=== PATIENT | male | born 1945 | race Hispanic/Latino ===

== ENCOUNTER 2018-12-13 21:56 | Inpatient (IN) ==
[2018-12-13] MEDS ORDERED: LOPRESSOR IV ONE (22:19)
[2018-12-13 22:46] LABS: BILIRUBIN URINE NEGATIVE (NEGATIVE); BLOOD URINE 1+ (NEGATIVE); CLARITY SL. CLOUDY (CLEAR); COLOR YELLOW; GLUCOSE URINE NEGATIVE (NEGATIVE); KETONE URINE NEGATIVE (NEGATIVE); LEUKOCYTES URINE 2+ (NEGATIVE); NITRITE URINE NEGATIVE (NEGATIVE); PH URINE 6.5; PROTEIN URINE 2+(100 mg/dL) mg/dL (NEGATIVE); SP GRAVITY URINE 1.015; UROBILINOGEN URINE NORMAL
[2018-12-13 23:00] LABS: URINE BACTERIA 4+ /HFP
[2018-12-13 23:01] LABS: URINE WBC TNTC /HPF (<10)
[2018-12-13 23:02] LABS: URINE CAST NONE SEEN /LPF; URINE CRYSTAL NONE SEEN /HPF; URINE EPITHELIAL CELLS <10 /HPF (<10); URINE SOURCE CLEAN CATCH; URINE YEAST NONE SEEN /HPF
[2018-12-13] MEDS ORDERED: ATIVAN IV ONE ×2 (23:25→23:29)
[2018-12-13] MEDS ORDERED: CARDIZEM PO ONE (23:27)
[2018-12-13] MEDS ORDERED: CATAPRES PO ONE (23:28)
[2018-12-13 23:35] LABS: BASO# 0.04 X1000 (0.0-0.2); BASO% 0.4 % (0.0-0.8); EOS# 0.12 X1000 (0.0-0.7); EOS% 1.2 % (0.0-10.0); HEMATOCRIT 40.2 % (42.0-52.0); HEMOGLOBIN 13.9 g/dL (14.0-18.0); IMM GRAN# 0.03 X1000 (0.0-0.04); IMM GRAN% 0.3 % (0.0-0.5); LYMPH# 1.47 X1000 (1.2-3.4); LYMPH% 14.3 % (20.5-51.1); MCH 30.4 PG (27-31); MCHC 34.6 g/dL (33-37); MONO# 0.46 X1000 (0.11-0.59); MONO% 4.5 % (1.7-9.3); MPV 11.8 FL (7.4-10.4); NEUT# 8.18 X1000 (1.4-6.5); NEUT% 79.3 % (42.2-75.2); PLT 159 X1000 (130-400); RBC 4.57 XMIL (4.7-6.1); RDW 13.1 % (11.5-14.5)
[2018-12-13 23:52] LABS: INR 0.98; PROTIME 13.5 Seconds (11.0-16.0)
[2018-12-14] LABS: AGAP 15; BUN 12 mg/dL (8-22); CHLORIDE 103 mmol/L (98-107); COSMO 283; CREATININE 0.8 mg/dL (0.7-1.2); GLUCOSE 133 mg/dL (70-104); POTASSIUM 3.8 mmol/L (3.5-5.1); SODIUM 141 mmol/L (136-145); TCO2 23 mmol/L (25-35)
[2018-12-14 00:01] LABS: CALCIUM 9.2 mg/dL (8.8-10.2); ESTIMATED GFR > 60; MAGNESIUM 1.9 mg/dL (1.5-2.7)
--- NOTE | 2018-12-14 00:51 | EKG Report ---
Test Performed on : 12/14/2018 00:43:18 AM Test Reason : SEIZURE Blood Pressure : / mmHG Vent. Rate : 097 BPM Atrial Rate : 097 BPM P-R Int : 162 ms QRS Dur : 104 ms QT Int : 400 ms P-R-T Axes : 053 052 087 degrees QTc Int : 508 ms Normal sinus rhythm. Incomplete right bundle branch block Nonspecific ST and T wave abnormality Abnormal ECG When compared with ECG of 12-MAY-2018 20:27, Incomplete right bundle branch block is now present Nonspecific T wave abnormality, worse in Anterolateral leads Unconfirmed Result
[2018-12-14] MEDS ORDERED: CATAPRES PO ONE (01:31)
[2018-12-14] MEDS ORDERED: ZOFRAN IV PRN (01:35)
[2018-12-14] MEDS ORDERED: TYLENOL PO PRN (01:35)
[2018-12-14] MEDS ORDERED: TORADOL IV PRN (01:35)
[2018-12-14] MEDS ORDERED: NS 1,000 ML IV ONE (01:35)
[2018-12-14] MEDS ORDERED: CATAPRES PO PRN (01:40)
[2018-12-14] MEDS ORDERED: ATIVAN IV PRN (01:42)
[2018-12-14] MEDS ORDERED: ROCEPHIN 1 GM in NS 50 ML IV ONE (01:43)
--- NOTE | 2018-12-14 01:43 | PROVIDER DOCUMENTATION ---
This chart was entered by Isabella Pagan Scribe, acting as scribe for Braulio Lieberman MD. HPI-Neurological Disorder - General Chief Complaint: Seizure Stated Complaint: AMS Time Seen by Provider: 12/13/18 22:11 Source: family, EMS Unable to obtain history due to:: other (pt and family with pt are poor histor ians, difficult to obtain detailed information about incident and pt hx.) Allergies/Adverse Reactions: Patient Allergies Allergy/AdvReac Type Severity Reaction Status Date / Time No Known Allergies Allergy Verified 05/12/18 20:28 Home Medications: Home Medication List Medication Instructions Recorded Confirmed Last Taken Type NK [No Home Medications] 05/12/18 05/12/18 Unknown History - History of Present Illness-Neuro Nature of Presenting Problem: pt is a 73 yr old male presenting via EMS post seizure. per family pt had seizure this afternoon while urinating and again this evening just after eating supper. pt was difficult to wake after 2nd seizure, family reports as generalized shaking all over. pt hx of CVA with craniotomy and clot removal 6 months ago, no hx of seizure disorder. pt incontinent with strong, foul smelling urine. Nephew now at bedside reports pt was at a SNF in [place] after being discharged from [facility] until his brother checked him out and took him home to be with family in [place]. pt has since run out of his medications which included cardizem 25 bid . pt is cared for by 82yr old brother and his . - Seizure First time to have a seizure?: Yes Witnessed seizure?: Yes How many seizure episodes?: 2 Episode details: reports: unknown duration, details of seizure cannot be obtained, details of seizure cannot be verified Episode Frequency: rare episodes Status Epilepticus: No Preceding symptoms/context:: active Character of Seizure: reports: generalized shaking all over, incontinent of urine Review of Systems - Adult - REVIEW OF SYSTEMS - ADULT ROS:: limited per condition (pt and family with pt are very poor historians, difficult to obtain information) Constitutional: reports: no symptoms reported. denies: chills, fever Eyes: reports: no symptoms reported Ears, Nose, Mouth & Throat: reports: no symptoms reported Cardiovascular: reports: no symptoms reported Respiratory: reports: no symptoms reported Gastrointestinal: reports: no symptoms reported Genitourinary: reports: incontinence, other (strong, foul smelling urine) Musculoskeletal: reports: no symptoms reported Integumentary: reports: no symptoms reported Neurological: reports: seizure Psychiatric: reports: no symptoms reported Endocrine: reports: no symptoms reported Hematologic/Lymphatic: reports: no symptoms reported Allergic/Immunologic: reports: no symptoms reported All Other Systems: Reviewed and Negative Past History - Adult - PAST MEDICAL HISTORY-ADULT Review of Records: reports: Old Records Reviewed, Nursing Assessment Review, Medications Reviewed, Social history reviewed & non-contributory. Major Childhood Illnesses: reports: denies history Cardiovascular: reports: denies history Respiratory: reports: denies history Gastrointestinal: reports: denies history Obstetrical/Gynecological: reports: denies history Genitourinary: reports: denies history Musculoskeletal: reports: denies history Neurological: reports: CVA Endocrine/Immune: reports: denies history Other Conditions: reports: denies history - PRIOR SURGERIES/PROCEDURES Surgical/Procedure History: reports: none - IMMUNIZATION STATUS Childhood Immunizations: See Nurse Assessment Flu Vaccine: See Nurse Assessment - FAMILY HISTORY Family History: reviewed, not pertinent - SOCIAL HISTORY Smoking: non-smoker Living Situation: family Physical Exam- Neurological - Physical Exam-Neuro Initial Vital Signs Reviewed: Yes General Appearance: no apparent distress, thin, slow to respond (slow to respond and slow to follow commands initally but back to his baseline per family within 20 min of presentation to ER.) HENMT: normocephalic/atraumatic, moist mucous membranes Head Injury: no evidence of injury Neck: non-tender, full range of motion, supple, normal inspection Respiratory: lungs clear, normal breath sounds Cardiovascular: normal peripheral pulses, no edema, no JVD, no murmur, tachycardia Abdominal Exam: normal bowel sounds, non tender, soft. negative: guarding, tenderness Lymphatic: no adenopathy Peripheral Pulses: radial (R): 2+, radial (L): 2+ Extremity: normal range of motion (pt moving all extremities without difficulty) , no pedal edema, no calf tenderness, normal capillary refill leather craftsman Exam: normal hearing, PERRL, other (spastic weakness left upper and lower extremity). negative: facial asymmetry, facial droop Motor/Sensory: weak motor strength LUE, weak motor strength LLE Neurologic: grossly normal Integumentary: normal color, normal turgor, warm/dry. negative: diaphoresis Psych/Mental Status: other (difficult to assess) - Glascow Coma Scale Best Eye Response: (4) open spontaneously Best Verbal Response: (4) confused conversation Best Motor Response: (6) obeys commands Progress - PLAN OF CARE/RESULTS Progress/Plan/Lab Results: Vital Signs - 8 hr 12/13/18 21:54 12/14/18 01:11 Temperature 98.6 F Pulse Rate 112 H 94 H Respiratory Rate 16 20 Blood Pressure 211/155 186/121 O2 Sat by Pulse Oximetry 96 Laboratory Results - last 24 hr 12/13/18 12/13/18 12/13/18 22:30 23:13 23:13 WBC RBC Hgb Hct MCV MCH MCHC RDW Std Deviation Plt Count MPV Immature Gran % (Auto) Neut % (Auto) Lymph % (Auto) [place] % (Auto) Eos % (Auto) Baso % (Auto) Immature Gran # (Auto) Neut # (Auto) Lymph # (Auto) [place] # (Auto) Eos # (Auto) Baso # (Auto) PT INR PTT (Actin FS) Sodium 141 Potassium 3.8 Chloride 103 Carbon Dioxide 23 L Anion Gap 15 BUN 12 Creatinine 0.8 Estimated GFR/1.73 m2 > 60 BUN/Creatinine Ratio 15 Glucose 133 H Calculated Osmolality 283 Calcium 9.2 Magnesium 1.9 Troponin T Plasma Lactate 1.2 Urine Source CLEAN CATCH Urine Color YELLOW Urine Clarity SL. CLOUDY A Urine pH 6.5 Ur Specific [place] 1.015 Urine Protein 2+(100 mg/dL) A Urine Ketones NEGATIVE Urine Blood 1+ A Urine Nitrite NEGATIVE Urine Bilirubin NEGATIVE Urine Urobilinogen NORMAL Urine Microscopic RBC 10-20 A Urine WBC 2+ A Urine Microscopic WBC TNTC A Ur Epithelial Cells <10 Urine Crystals NONE SEEN Urine Bacteria 4+ Urine Casts NONE SEEN Urine Yeast NONE SEEN Urine Glucose NEGATIVE 12/13/18 12/13/18 12/13/18 23:13 23:13 23:13 WBC 10.30 RBC 4.57 L Hgb 13.9 L Hct 40.2 L MCV 88.0 MCH 30.4 MCHC 34.6 RDW Std Deviation 13.1 Plt Count 159 MPV 11.8 H Immature Gran % (Auto) 0.3 Neut % (Auto) 79.3 H Lymph % (Auto) 14.3 L [place] % (Auto) 4.5 Eos % (Auto) 1.2 Baso % (Auto) 0.4 Immature Gran # (Auto) 0.03 Neut # (Auto) 8.18 H Lymph # (Auto) 1.47 [place] # (Auto) 0.46 Eos # (Auto) 0.12 Baso # (Auto) 0.04 PT 13.5 INR 0.98 PTT (Actin FS) 45.0 H Sodium Potassium Chloride Carbon Dioxide Anion Gap BUN Creatinine Estimated GFR/1.73 m2 BUN/Creatinine Ratio Glucose Calculated Osmolality Calcium Magnesium Troponin T < 0.010 Plasma Lactate Urine Source Urine Color Urine Clarity Urine pH Ur Specific [place] Urine Protein Urine Ketones Urine Blood Urine Nitrite Urine Bilirubin Urine Urobilinogen Urine Microscopic RBC Urine WBC Urine Microscopic WBC Ur Epithelial Cells Urine Crystals Urine Bacteria Urine Casts Urine Yeast Urine Glucose Orders Category Date Time Status CHEST-PORTABLE [RAD] Stat Exams 12/13/18 22:[address] HEAD W/O CONTRAST [CT] Stat Exams 12/13/18 23:29 Taken BASIC METABOLIC PANEL [CHEM] Stat Lab 12/13/18 23:13 Completed CBC WITH ELECTRONIC DIFF [HEME] Stat Lab 12/13/18 23:13 Completed LACTATE, PLASMA [CHEM] Stat Lab 12/13/18 23:13 Completed MAGNESIUM [CHEM] Stat Lab 12/13/18 23:13 Completed PROTIME WITH INR [COAG] Stat Lab 12/13/18 23:13 Completed PTT [COAG] Stat Lab 12/13/18 23:13 Completed TROPONIN T Stat Lab 12/13/18 23:[address] W/POSS RFLX CULT [URINALYSIS] Stat Lab 12/13/18 22:30 Completed URINE CULTURE [RM] Routine Lab 12/13/18 23:02 Ordered Clonidine [Catapres] Med 12/13/18 23:28 Discontinued 0.2 mg PO NOW ONE Diltiazem [Cardizem] Med 12/13/18 23:27 Discontinued 30 mg PO NOW ONE Lorazepam [Ativan] Med 12/13/18 23:25 Discontinued 1 mg IV NOW ONE Lorazepam [Ativan] Med 12/13/18 23:29 Discontinued 2 mg IV NOW ONE Metoprolol [Lopressor] Med 12/13/18 22:19 Discontinued 5 mg IV NOW ONE EKG [EKG] Stat Ther 12/13/18 22:13 Ordered EKG [EKG] Stat Ther 12/13/18 23:25 Draft Result Diagrams: 12/13/18 23:13 12/13/18 23:13 - REASSESSMENT Reassessment #1 Time Reassessed: 23:20 Status: unchanged (per nephew now at bedside pt is at his baseline normal.) - EKG 1 Time of EKG reading by physician:: 00:45 EKG Read and Signed by:: Braulio Lieberman EKG Interpretation (*Must complete 3 of following elements*): Abnormal (non specific st and t wave abnormality) Rate: 97 Rhythm: nsr [place]: normal QRS: RBB (incomplete RBBB) - CT/MRI 1 CT Study: Head Impression: Abnormal (chronic changes as listed with no CT evidence for acute intracranial abnormality), See EMR Report - CONSULTS/PCP/HOSPITALIST Notification #1 *Consult/PCP/Hospitalist*: Dr Gandara Time Discussed: 23:50 Reason/Comments: discussed plan of care for pt admit Consult Disposition: Admit Departure - Departure Date of Disposition Decision: 12/14/18 Time of Disposition Decision: 01:30 DIAGNOSIS: First time seizure, History of CVA with residual deficit, Uncontrolled hypertension, UTI (urinary tract infection) Disposition: ADMITTED INPATIENT 09 Certified Medical Emergency: Emergent Condition: Fair Referrals and Follow-Ups: None,PCP [Primary Care Provider] - - Critical Care Note This patient required my direct & personal management of CC.: No Attestation - Physician/ EMILIE Attestation Patient care was provided by Advanced Practice Provider:: No The physician spent face to face time with patient:: Yes Advanced Practice Provider documentation review:: Supervising physician onsite and consulted in the evaluation and care of this patient. The physician did have a face to face encounter with the patient. - NIH Stroke Scale Level of Consciousness: 1-Drowsy, but arousable with minimal stimulation LOC Questions (ask month and age): 2-Both Incorrect LOC Commands (ask to open & close eyes;make a fist, let go): 2-Both Incorrect This chart was documented by the indicated scribe, (Isabella Pagan, Pierceibmilady) and accurately reflects the services I performed and decisions made by me, Braulio Lieberman MD, as attested by the provider's signature.
[2018-12-14 08:00] LABS: UR AMPHETAMINES QUAL NONE DETECTED (NONE DETECT); UR BARBITUATES QUAL NONE DETECTED (NONE DETECT); UR BENZODIAZEPIN QUAL NONE DETECTED (NONE DETECT); UR CANNABINOIDS QUAL NONE DETECTED (NONE DETECT); UR COCAINE QUAL NONE DETECTED (NONE DETECT); UR METHADONE QUAL NONE DETECTED (NONE DETECT); UR METHAMPHETAMINE QUAL NONE DETECTED (NONE DETECT); UR OPIATES QUAL NONE DETECTED (NONE DETECT); UR OXYCODONE QUAL NONE DETECTED (NONE DETECT); UR PCP QUAL NONE DETECTED (NONE DETECT); UR PROPOXYPHENE QUAL NONE DETECTED (NONE DETECT); UR TCA QUAL NONE DETECTED (NONE DETECT)
--- NOTE | 2018-12-14 09:14 | Diag Imaging Result Doc PS360 ---
EXAM: CHEST-PORTABLE INDICATION: SEIZURE,AMS TECHNIQUE: One view COMPARISON: 05/12/2018 FINDINGS: The lungs are grossly clear. There is no discrete pleural fluid collection or pneumothorax. The cardiomediastinal silhouette and central vasculature are grossly unremarkable. IMPRESSION: No evidence of acute pathology by plain radiograph. Electronically signed by Luis Petersen 12/14/2018 9:11 AM
--- NOTE | 2018-12-14 10:12 | Diag Imaging Result Doc PS360 ---
EXAM: CT HEAD W/O CONTRAST INDICATION: 1ST SEIZURE TECHNIQUE: This exam was performed using automated exposure control, adjustment of mA or kV according to patient size, and/or use of iterative reconstruction technique. COMPARISON: 05/12/2018 FINDINGS: There has been interval development of right temporoparietal encephalomalacia at the site of the acute parenchymal hematoma that was seen on the previous study. There is extensive white matter microangiopathy bilaterally that is stable. There is no definite acute infarct given the limited sensitivity of CT versus MRI. There is no discrete intracranial mass, mass effect, or intracranial hemorrhage. There has been an interval craniotomy on the right overlying the region of the previous hematoma. Surrounding soft tissues and bony structures are essentially unremarkable, otherwise. IMPRESSION: Chronic changes as described. No definite acute intracranial pathology. Electronically signed by Luis Petersen 12/14/2018 10:10 AM
--- NOTE | 2018-12-14 10:24 | HISTORY AND PHYSICAL ---
PRIMARY CARE PHYSICIAN: None. CHIEF COMPLAINT: Seizure with altered mental status. HISTORY OF PRESENTING ILLNESS: This is a 73-year-old male who [facility] via EMS after family states that the patient had a seizure yesterday afternoon while urinating, and then he had another seizure just after eating supper. He was difficult to awake after the second seizure. Has no history of seizure disorder. Family reported in the emergency room that he was shaking all over, generalized. It is noted that the patient has a history of a CVA and had a craniotomy with clot removal approximately 6 months ago. He was discharged from [facility], and sent to a residential facility in [place], and was there until recently when his brother, who is 82 years old, checked him out and took him home to be with family in [place]. He has since run out of medications, and has not taken them for an unknown amount of time. It is also noted that the patient was incontinent with a strong foul-smelling urine. When he arrived to the emergency room, he was noted to have a blood pressure of 211/155. Laboratory data was fairly unremarkable, except for his urinalysis showed negative nitrites, 2+ white blood cells, 4+ bacteria. Urine drug screen was negative. Chest x-ray showed no evidence of acute pathology by plain radiograph. Head CT has been obtained, but awaiting radiology read, so he was admitted for further evaluation and treatment. This morning, the patient is noted to be lethargic, responded with only minimal grunt with a sternal rub, did not respond to verbal stimuli. We are attempting to obtain some records from [facility] to see what his previous medications were as we do not have any history, and no family is at the bedside currently. In the emergency room, it appears that the patient was given Lopressor 5 mg IV x1, Ativan 1 mg IV every 1 hour p.r.n., and was given 2 mg IV x1. Also was given Cardizem 30 mg p.o. x1, clonidine 0.2 two separate doses in the ER, was given a dose of Rocephin 1 gram IV in the emergency room, so we will make that attempt to determine what previous medications he has been on. PAST MEDICAL HISTORY: CVA. No other history is known per the ER record. PAST SURGICAL HISTORY: Craniotomy 6 months ago with clot removal, otherwise unknown. FAMILY HISTORY: Reviewed and noncontributory. SOCIAL HISTORY: Currently lives with family. Denies any tobacco, alcohol, or illicit drug use. ALLERGIES: No known drug allergies. HOME MEDICATIONS: Unknown, but again, he has not taken any medications for an unknown amount of time since he was brought to [place] to live with his brother. IMAGING AND LABORATORY DATA: Laboratory data showed a white blood cell count of 10.30, hemoglobin 13.9, hematocrit 40.2, platelets 159,000. PT and INR of 13.5 and 0.98. Sodium 141, potassium 3.8, chloride 103, CO2 of 23, BUN of 12, creatinine 0.8, glucose 133. Magnesium 1.9. Plasma lactate of 1.2. Troponin was negative. Urinalysis showed negative nitrites, 2+ white blood cells, 4+ bacteria. Urine drug screen showed none detected. Chest x-ray showed no evidence of acute pathology by plain radiograph. CT of the head results are pending. REVIEW OF SYSTEMS: Unable to obtain from the patient due to lethargy. PHYSICAL EXAMINATION: VITAL SIGNS: On arrival, he had a temperature of 98.6 degrees, pulse 112, respirations 16, blood pressure was 211/155. Currently, blood pressure is down to 115/69 this morning. GENERAL: This is a 73-year-old male who is lying in the bed, snoring, responded only minimally with a grunt to sternal rub, would not answer any questions verbally this morning. HEENT: Normocephalic, atraumatic. Normal ENT inspection. Oropharynx and nares are clear. Eyes: Unable to assess at this time as the patient would not spontaneously open eyes, so unable to assess extraocular movements. NECK: Normal inspection. Normal range of motion. LUNGS: Clear to auscultation bilaterally with equal lung expansion and chest wall movement. HEART: Regular rate and rhythm. No murmurs, rubs, or gallops. ABDOMEN: Soft, nontender, nondistended. Bowel sounds are present x4 quadrants. MUSCULOSKELETAL: Unable to assess strength and movement at this time due to lethargy. NEUROLOGIC: Unable to obtain a neurological exam due to lethargy. ASSESSMENT: 1. Altered mental status. 2. Seizures x2 witnessed per family. None since arriving to the emergency room. 3. Cerebrovascular accident, history of. PLAN: He was admitted to the medical unit at [facility], placed on telemetry. Urine culture is pending. Blood cultures x2 are pending. CT of the head without contrast has been obtained. Awaiting radiology read. Will place him on Rocephin 1 gram IV every 24 hours. We are going to attempt to obtain records from the residential facility in [place], where he was previously, to get at least a baseline of his previous medications. Again, he has been off of them for an unknown amount of time. Will continue normal saline at 75 mL an hour until he is more arousable, and will start with a clear liquid diet when he is more awake. Further orders after seen by attending. Dictated by CHRISTOPHER Taylor for Kashmir Holden MD Addendum: Patient seen and examined by myself. Agree with CHRISTOPHER note. It reflects my assessment and plan. Patient is being admitted to hospital for seizures. We are going to start loading dosis of Keppra 1 gr IV q8hr and will order MRI of brain with contrast. Will consult Neurology. Also I talked with brother and nephew at bedside and patient has been not receiving any medication from last August. They reported the only way to get new prescriptions was to bring patient to [facility] but they were not able to. Will provide also Ativan PRN to seizures and family expressed their desire to send this patient to local rehab facility. cc: CHRISTOPHER Taylor MD [facility]
[2018-12-14] MEDS: KEPPRA 1,000 MG/NS 1,000 MG/100 ML IVPB IV SCH ×2 (11:26→19:43)
[2018-12-14] MEDS: NS 1,000 ML IV SCH (11:29)
[2018-12-14] MEDS: VASOTEC IV SCH ×2 (12:26→22:07)
[2018-12-14] MEDS: ASPIRIN PR SCH (12:26)
[2018-12-14] MEDS: ATIVAN IV PRN (23:18)
[2018-12-15] MEDS: ROCEPHIN 1 GM in NS 50 ML IV SCH (01:32)
[2018-12-15] MEDS: NS 1,000 ML IV SCH ×2 (01:32→17:51)
[2018-12-15] MEDS: KEPPRA 1,000 MG/NS 1,000 MG/100 ML IVPB IV SCH ×3 (02:47→18:20)
[2018-12-15] MEDS: ATIVAN IV PRN ×2 (02:55→20:12)
[2018-12-15] MEDS: ASPIRIN PR SCH (12:26)
--- NOTE | 2018-12-15 12:26 | Diag Imaging Result Doc PS360 ---
MRI BRAIN W/WO CONTRAST - 12/15/2018 INDICATION: seizure, AMS, Hx CVA COMPARISON: Head CT 12/14/2018 FINDINGS: There is severe patient motion artifact throughout the exam. There is no clear restricted diffusion. There is advanced cerebral atrophy. There is severe periventricular white matter hyperintensity bilaterally compatible with chronic microvascular disease/gliosis. No large mass or intracranial hemorrhage. No definite abnormal contrast enhancement. IMPRESSION: Very poor exam. No obvious acute abnormality. Electronically signed by Augustine Gutierrez 12/15/2018 12:24 PM
[2018-12-15] MEDS: APRESOLINE IV PRN (16:15)
--- NOTE | 2018-12-15 19:56 | PROGRESS NOTE ---
DATE: 12/15/2018 SUBJECTIVE: Patient is difficult to arouse this morning, but he will arouse to stimuli. He is quite somnolent. PHYSICAL EXAMINATION: Vital Signs: Reviewed. Temperature 97.5 degrees, pulse 69, respiratory rate 18, BP 149/91. General: Patient is awake. He is in no distress. HEENT: Normocephalic, atraumatic. LEROY. Neck: Supple. Cardiovascular: Regular rate. Chest: Clear. Abdomen: Soft. Extremities: Moves all extremities. ASSESSMENT: 1. Recent seizure. Electroencephalogram pending. 2. Altered mental status. 3. History of cerebrovascular accident. 4. Hypertension. Will continue hydralazine p.r.n. PLAN: We will await EEG and then will consult Neurology. Patient currently is still too somnolent to do a full neurologic exam. It does appear as though he has a urinary tract infection. He is growing gram-negative rods in his urine. Currently, he is on Rocephin and we will continue this. cc: Naeem Young MD
--- NOTE | 2018-12-15 21:14 | CONSULTATION ---
DATE OF CONSULTATION: 12/15/2018 HISTORY OF PRESENT ILLNESS: Mr. Vides is 73 years old and he had recent clinical seizure. He is not able to provide a detailed history. We have some records from [facility] showing he presented with right temporal hematoma about 7 months ago. This was managed with craniotomy. EEG monitoring then showed a tendency to seizure, but I am not certain he ever had a definite clinical seizure there. He was continued on levetiracetam through that hospitalization and at discharge. He had residual left hemiparesis. He apparently stopped taking medications at some point after hospital discharge. He spent some time in rehab and then the family got him out of rehab and medications were either purposefully or inadvertently discontinued. He had 2 apparent clinical seizure episodes a few days ago. I am not certain that there was increase in the baseline left hemiparesis after these episodes. LABORATORY WORK: His lab work here showed blood sugar 133, nothing else remarkable on chemistry. Urine drug screen was all negative. IMAGING: CT several months ago showed right-sided hematoma. CT this admission shows right temporal parietal lucency. Brain MRI shows the old changes, but nothing acute and no recent bleeding. EEG shows generalized slowing, slowing more prominent on the right. No epileptiform discharge or electrographic seizure recorded. PHYSICAL EXAMINATION: On exam, he is awake, alert, attentive. He seems a little bit angry, but generally appropriate. Speech is significant accented Iraqi, but I believe there is also dysarthria. I believe that his language function is intact on bedside testing. He was attentive to portions of exam. He showed good power in the right limbs. On the left, he moved his leg purposefully. He provided good building mechanic power. I can overcome the left deltoid grading 4/5. Tone is increased in the left arm compared to the right. He did rapid alternating movements better with the right hand than the left. He did a little bit better with right [id number] than with the left. He provided inconsistent responses on brief attempts at sensory testing and I think that portion of exam is not valid. He was similarly inconsistent with attention when testing visual garcia. He counted fingers correctly in the right garcia, tested with both eyes open and with each eye individually. When testing in the left field, he made some mistakes, but often counted fingers correctly in the left visual field. His facial motility is slightly diminished on the left in an upper motor neuron pattern. Tongue is midline. He can hear. I did not test his gait. IMPRESSION: 1. History sounds like 2 seizure episodes a few days ago. I do not have a first hand witness report. These seem likely related to recent nondominant right hemisphere event. I do not know if there was transient increased left hemiparesis or not. I do not know if his current deficit is baseline or not. I think we should continue levetiracetam at current dose and follow him clinically. Renal function looks good and we should see reasonable level with current levetiracetam dosing. He does not appear to be sedated. If he becomes sedated or if he has further seizure, we can check levetiracetam level and adjust dose as indicated. 2. Recent right hemisphere hemorrhage managed surgically with residual left hemiparesis. Again, I am not sure if current deficit is baseline. 3. I also have concern for his cognitive function. He may have cognitive impairment. Depending on his clinical course, we might consider more careful testing of cognitive function later and we might consider cholinesterase inhibitor trial. Thanks for asking Neurology to see Mr. Vides. cc: Aiden Roper III, MD [facility] SYSTEMLissette
[2018-12-16] MEDS: ATIVAN IV PRN (00:46)
[2018-12-16] MEDS: APRESOLINE IV PRN ×4 (00:46→20:55)
[2018-12-16] MEDS: ROCEPHIN 1 GM in NS 50 ML IV SCH (02:17)
[2018-12-16] MEDS: KEPPRA 1,000 MG/NS 1,000 MG/100 ML IVPB IV SCH ×3 (03:03→20:55)
[2018-12-16] MEDS: PRINIVIL PO SCH ×2 (09:54→10:06)
[2018-12-16] MEDS: ASPIRIN PR SCH (09:54)
[2018-12-16] MEDS: NS 1,000 ML IV SCH (10:58)
--- NOTE | 2018-12-16 19:15 | PROGRESS NOTE ---
DATE: 12/16/2018 SUBJECTIVE: The patient actually seems a little more, although only slightly more, alert today. PHYSICAL EXAMINATION: Vital Signs: Temperature 97.7, pulse 97 to 120, respiratory 20, BP 170/89. General: Patient actually responded to verbal stimuli. Though still too sedated to answering questions or follow any commands. His obvious weakness was his left upper extremity. His bilateral lower extremities actually are voluntarily bent at the knees and raised on the bed. HEENT: Normocephalic. Neck: Supple. Cardiovascular: Regular rate currently, although has had several episodes of tachycardia overnight. Chest: Clear. No crackles. No wheezing. Abdomen: Soft. Extremities: No edema. ASSESSMENT: 1. Escherichia coli urinary tract infection. 2. History of cerebrovascular accident. 3. Metabolic encephalopathy of undetermined origin. 4. Hypertension. Blood pressure is still elevated. We will add hydralazine and lisinopril. 5. Recent seizure. PLAN: We will continue the patient in the hospital. Continue antibiotics. Currently, he is on Rocephin, which his Escherichia coli urinary tract infection is sensitive to and hopefully that is what is improving his altered sensorium. We will continue to follow. Further orders as needed. cc: Naeem Young MD
[2018-12-17] MEDS: ROCEPHIN 1 GM in NS 50 ML IV SCH (01:00)
[2018-12-17] MEDS: NS 1,000 ML IV SCH ×2 (01:01→07:35)
[2018-12-17] MEDS: KEPPRA 1,000 MG/NS 1,000 MG/100 ML IVPB IV SCH ×3 (02:15→19:45)
[2018-12-17] MEDS: ATIVAN IV PRN ×2 (02:15→05:21)
[2018-12-17] MEDS: APRESOLINE IV PRN ×2 (05:21→11:32)
[2018-12-17 07:55] LABS: HEMOGLOBIN 13.4 g/dL (14.0-18.0); MCH 29.3 PG (27-31); MCHC 33.5 g/dL (33-37); MCV 87.5 FL (81-99); MPV 11.7 FL (7.4-10.4); RBC 4.57 XMIL (4.7-6.1); RDW 13.6 % (11.5-14.5); WBC 12.27 X1000 (4.8-10.8)
[2018-12-17] MEDS ORDERED: LASIX IV ONE (08:29)
[2018-12-17 08:33] LABS: AGAP 19; ALBUMIN 4.1 g/dL (3.5-5.0); ALKALINE PHOSPHATASE 97 U/L (32-122); BUN 9 mg/dL (8-22); CALCIUM 9.1 mg/dL (8.8-10.2); CHLORIDE 107 mmol/L (98-107); COSMO 287; CREATININE 0.6 mg/dL (0.7-1.2); ESTIMATED GFR > 60; GLUCOSE 117 mg/dL (70-104); GOT 10 U/L (10-34); GPT 8 U/L (10-44); MAGNESIUM 1.7 mg/dL (1.5-2.7); POTASSIUM 3.1 mmol/L (3.5-5.1); SODIUM 144 mmol/L (136-145); TCO2 19 mmol/L (25-35); TOTAL PROTEIN 6.6 g/dL (6.3-8.3)
[2018-12-17] MEDS: ASPIRIN PR SCH (08:35)
[2018-12-17] MEDS: PRINIVIL PO SCH (08:39)
[2018-12-17] MEDS: COREG PO SCH ×2 (08:39→20:04)
--- NOTE | 2018-12-17 10:10 | EKG Report ---
Test Performed on : 12/17/2018 08:23:50 AM Test Reason : tachy Blood Pressure : / mmHG Vent. Rate : 125 BPM Atrial Rate : 125 BPM P-R Int : 128 ms QRS Dur : 100 ms QT Int : 356 ms P-R-T Axes : 047 064 -63 degrees QTc Int : 513 ms Sinus tachycardia. with fusion complexes ST & T wave abnormality, consider inferior ischemia ST & T wave abnormality, consider anterolateral ischemia Abnormal ECG When compared with ECG of 14-DEC-2018 00:43, (Unconfirmed) fusion complexes are now present Confirmed by Yonatan Case MD ([id number]) on 12/21/2018 10:20:21 AM
--- NOTE | 2018-12-17 11:54 | Diag Imaging Result Doc PS360 ---
EXAM: CHEST-PORTABLE 12/17/2018 HISTORY: FU TECHNIQUE: AP portable at 1159 COMMENT: The inspiration is suboptimal. There is no evidence of acute cardiac or pulmonary disease. There is a questionable nodular opacity partially obscured by the first rib and medial clavicle on the right. Otherwise compared to 12/13/2018 there has been no significant change. IMPRESSION: Questionable right upper lobe nodule. Electronically signed by Layton Maloney 12/17/2018 11:52 AM
--- NOTE | 2018-12-17 14:08 | PROGRESS NOTE ---
DATE: 12/17/2018 SUBJECTIVE: The patient himself has no complaints. He is still somnolent, does not answer questions nor follow commands, but will arouse to stimuli. His brother was in the room upon return visit. I spent 20 minutes discussing with his brother, who relates that Mr. Vides normally is at home, ambulating with a walker, talking without any difficulty. I am not sure how exactly accurate this is, as he clearly has some muscle wasting of his left upper extremity, and the nephew seems to dispute Mr. Vides being able to go home. OBJECTIVE: Temperature 98, pulse 120s, respiratory 19, BP 175/81.General: Patient is lying in bed. He is somnolent. Does arouse to stimuli. He has contractures noted of his left hand with muscle wasting compared to the right arm. HEENT: Normocephalic. Neck: Supple. Cardiovascular: Regular rate. Chest: Clear, nonlabored. Abdomen: Soft, nondistended. Extremities: Left upper extremity weakness. No edema. ASSESSMENT: 1. Acute metabolic encephalopathy. 2. Seizure. 3. History of cerebrovascular accident. 4. Hypertension. 5. Supraventricular tachycardia. 6. Urinary tract infection, Escherichia coli. We will continue antibiotics. PLAN: We will continue his antiepileptics. Continue Rocephin. Blood pressure control. Continue physical therapy and will follow. cc: Naeem Young MD
--- NOTE | 2018-12-17 14:37 | EEG REPORT ---
DATE: 12/15/2018 ELECTROENCEPHALOGRAM NUMBER: [id number]. COMMENT: This is a digitally recorded EEG on a 73-year-old patient with history of right hemisphere hematoma managed surgically several months ago, left hemiparesis, reported recent-onset seizure. FINDINGS: There is polymorphic and rhythmic theta across the hemispheres. There is some slowing into the delta range frontally, more prominent on the right than the left. There was briefly more prominent generalized slowing consistent with apparent drowsing. Stage 2 sleep was not recorded. Photic stimulation did not significantly alter the record. No definite epileptiform discharge was identified. INTERPRETATION: Abnormal electroencephalogram because of generalized slowing and more prominent slowing over the right hemisphere. CORRELATION: This is indicative of a diffuse encephalopathy with additional more focal disturbance of electrocortical activity in the right hemisphere, consistent with his known structural lesion. The absence of epileptiform discharges does not exclude a clinical diagnosis of seizures. cc: MD Alix Ham III, CRNP MTDD
[2018-12-17] MEDS ORDERED: KLOR-CON PO ONE (16:49)
[2018-12-17] MEDS ORDERED: POTASSIUM CHLORIDE 20 MEQ/SWI 20 MEQ/100 ML IVPB IV ONE (16:59)
[2018-12-18] MEDS: ROCEPHIN 1 GM in NS 50 ML IV SCH (02:54)
[2018-12-18] MEDS: KEPPRA 1,000 MG/NS 1,000 MG/100 ML IVPB IV SCH ×3 (03:54→18:18)
[2018-12-18] MEDS: APRESOLINE IV PRN ×2 (04:17→08:31)
[2018-12-18 06:20] LABS: MAGNESIUM 1.7 mg/dL (1.5-2.7); POTASSIUM 3.1 mmol/L (3.5-5.1)
[2018-12-18] MEDS ORDERED: KLOR-CON PO ONE (06:54)
[2018-12-18] MEDS: ASPIRIN PR SCH (08:30)
[2018-12-18] MEDS: PRINIVIL PO SCH (08:31)
[2018-12-18] MEDS: COREG PO SCH ×2 (08:31→21:27)
--- NOTE | 2018-12-18 16:37 | PROGRESS NOTE ---
DATE: 12/18/2018 SUBJECTIVE: The patient is more awake and alert. Does not answer questions nor follow commands. No family currently present. OBJECTIVE: Temperature 99, pulse 111, respiratory 18, blood pressure elevated at 193/111.General: Patient is in no current respiratory distress. Lying in the bed. Noted to have contractures of his left upper extremity. He is noted to move bilateral lower and his right upper extremity. ASSESSMENT: 1. History of cerebrovascular accident. 2. Recent seizures. 3. Metabolic encephalopathy. 4. Hypertension. Blood pressure is still elevated. We will increase the lisinopril to 40 mg daily. Continue hydralazine as needed. 5. Escherichia coli urinary tract infection. Continue antibiotics. PLAN: Expect patient will be in the hospital for a couple of more days as we control his blood pressure. cc: Naeem Young MD
[2018-12-19] MEDS: APRESOLINE IV PRN ×2 (00:22→04:42)
[2018-12-19] MEDS: ATIVAN IV PRN (01:31)
[2018-12-19] MEDS: ROCEPHIN 1 GM in NS 50 ML IV SCH (02:00)
[2018-12-19] MEDS: KEPPRA 1,000 MG/NS 1,000 MG/100 ML IVPB IV SCH (02:38)
[2018-12-19 06:33] LABS: HEMATOCRIT 39.3 % (42.0-52.0); HEMOGLOBIN 13.3 g/dL (14.0-18.0); MCHC 33.8 g/dL (33-37); MCV 88.5 FL (81-99); MPV 12.1 FL (7.4-10.4); RBC 4.44 XMIL (4.7-6.1); RDW 13.6 % (11.5-14.5); WBC 10.49 X1000 (4.8-10.8)
[2018-12-19 07:09] LABS: AGAP 14; BUN 13 mg/dL (8-22); CALCIUM 9.5 mg/dL (8.8-10.2); CHLORIDE 108 mmol/L (98-107); COSMO 287; CREATININE 0.7 mg/dL (0.7-1.2); ESTIMATED GFR > 60; GLUCOSE 107 mg/dL (70-104); POTASSIUM 3.2 mmol/L (3.5-5.1); SODIUM 144 mmol/L (136-145); TCO2 22 mmol/L (25-35)
[2018-12-19 07:10] LABS: ALBUMIN 3.9 g/dL (3.5-5.0); ALKALINE PHOSPHATASE 94 U/L (32-122); GOT 12 U/L (10-34); GPT 8 U/L (10-44); MAGNESIUM 1.6 mg/dL (1.5-2.7)
[2018-12-19] MEDS ORDERED: POTASSIUM CHLORIDE 20% LIQUID PO ONE (08:10)
--- NOTE | 2018-12-19 09:39 | DISCHARGE SUMMARY ---
ADMISSION DATE: 12/14/2018 DISCHARGE DATE: 12/19/2018 DISCHARGE DIAGNOSES: 1. History of cerebrovascular accident. 2. History of craniotomy 6 months ago with clot removal. 3. Recent seizure. 4. Hypertension. 5. Adult failure to thrive. 6. Escherichia coli urinary tract infection. CONSULTATIONS: Neurology. PROCEDURE: EEG. BRIEF HOSPITAL COURSE: The patient is a 73-year-old male, who presented to the ER after having a seizure. Apparently he had a craniotomy due to cerebral hemorrhage approximately 6 months ago in [place], and then was transferred to rehab. Apparently, the brother went and picked him up from rehab and, at some point in over the last 2 or 3 months, the patient has been living at home without any medications. He presented to the hospital after having had a seizure. He was placed on Lamictal. Neurology was consulted. EEG was performed, as well as a CT. Patient did not have any further bleeding. Thankfully he had an uneventful hospital course prolonged only secondary to the severity of his chronic illnesses. The patient is more alert now than he was on admission. He was diagnosed with a UTI, has finished his antibiotics for his E coli urinary tract infection. Did have trouble with his blood pressures, and medications were added as noted below. DISPOSITION: Greater than 30 minutes was spent in total care. Patient will be discharged to rehab. He will continue with physical therapy, occupational therapy, speech therapy. Will continue a regular diet. DISCHARGE MEDICATIONS: Hydralazine 25 t.i.d., lisinopril 40 daily, Coreg 12.5 daily, Lamictal 100 b.i.d. cc: Naeem Young MD
[2018-12-19] MEDS: PRINIVIL PO SCH ×2 (10:44→11:11)
[2018-12-19] MEDS: COREG PO SCH ×2 (10:45→11:10)
[2018-12-19] MEDS: LAMICTAL PO SCH ×2 (10:45→11:10)
[2018-12-19] MEDS: OMNICEF PO SCH ×2 (10:45→11:11)
[2018-12-19] MEDS: ASPIRIN PR SCH (10:46)
[2018-12-19] MEDS: APRESOLINE PO SCH ×2 (11:10→17:08)
[2018-12-19 15:10] VITALS: BP 134/66
== END 2018-12-19 17:23 | DRG 57 ==
LOC: P.MEDSURG 21:56 → P.ED 21:56 → SUATTDRO 12-14 04:34 → OBSVTOIN 12-14 04:34
PROVIDERS: ATTEND Family Medicine
CPT/HCPCS: 70450; 70553; 71010; 71045; 80048; 80053; 80104; 80301; 80305; 81001; 82550; 83605; 83735; 84132; 84443; 84484; 85025; 85027; 85610; 85730; 87040; 87077; 87088; 87186; 93005; 93010; 95816; 96365; 96375; 97163; 97530; 99285; A9270; A9579; G0431; G0434; G0477; J0360; J0696; J1940; J1953; J2060; J3480; J7030

== ENCOUNTER 2018-12-22 10:36 | Inpatient (IN) ==
--- NOTE | 2018-12-22 10:55 | Diag Imaging Result Doc PS360 ---
CT HEAD W/O CONTRAST - 12/22/2018 INDICATION: ams COMPARISON: 12/14/2018 FINDINGS: Stable diffuse cerebral atrophy. Stable advanced periventricular white matter chronic microvascular disease. Stable large old infarction at the right middle cerebral artery territory. No intracranial mass or hemorrhage. Stable craniectomy changes at the lateral right side of the calvarium. No acute fractures. There is a small amount of fluid in the right mastoids stable from prior. IMPRESSION: No acute process. This exam was performed using automated exposure control, adjustment of mA or kV according to patient size, and/or use of iterative reconstruction technique Electronically signed by Augustine Gutierrez 12/22/2018 10:53 AM
[2018-12-22 12:56] LABS: URINE SOURCE CATH
--- NOTE | 2018-12-22 13:01 | Diag Imaging Result Doc PS360 ---
EXAM: CHEST-1 VIEW HISTORY: cough TECHNIQUE: Chest single view COMPARISON: 12/17/2018 FINDINGS: Poor inspiratory effort. Mild increased interstitial markings most pronounced in the mid left lung. Heart is borderline mildly prominent. No pleural effusions. Right lung remains clear. IMPRESSION: Small infiltrate versus mild pulmonary edema. Electronically signed by Sergo Nina 12/22/2018 12:59 PM
[2018-12-22 13:04] LABS: BILIRUBIN URINE NEGATIVE (NEGATIVE); BLOOD URINE NEGATIVE (NEGATIVE); COLOR YELLOW; GLUCOSE URINE NEGATIVE (NEGATIVE); KETONE URINE NEGATIVE (NEGATIVE); LEUKOCYTES URINE TRACE (NEGATIVE); NITRITE URINE NEGATIVE (NEGATIVE); PROTEIN URINE NEGATIVE (NEGATIVE); SP GRAVITY URINE 1.019; TURBIDITY URINE CLEAR (CLEAR); UR EPITHELIAL CELLS <10 /HPF (<10); URINE BACTERIA NEGATIVE /HPF; URINE RBC <10 /HPF (<10); URINE WBC <10 /HPF (<10); UROBILINOGEN URINE NORMAL (NORMAL)
[2018-12-22 13:17] LABS: BASO# 0.05 X1000 (0.0-0.2); BASO% 0.5 % (0.0-0.8); EOS# 0.28 X1000 (0.0-0.7); EOS% 2.7 % (0.0-10.0); HEMATOCRIT 38.2 % (42.0-52.0); HEMOGLOBIN 12.9 g/dL (14.0-18.0); IMM GRAN# 0.04 X1000 (0.0-0.04); IMM GRAN% 0.4 % (0.0-0.5); LYMPH# 1.57 X1000 (1.2-3.4); LYMPH% 14.9 % (20.5-51.1); MCH 29.9 PG (27-31); MCHC 33.8 g/dL (33-37); MCV 88.6 FL (81-99); MONO# 0.63 X1000 (0.11-0.59); MPV 12.2 FL (7.4-10.4); NEUT# 7.96 X1000 (1.4-6.5); NEUT% 75.5 % (42.2-75.2); PLT 164 X1000 (130-400); RBC 4.31 XMIL (4.7-6.1); RDW 13.3 % (11.5-14.5); WBC 10.53 X1000 (4.8-10.8)
[2018-12-22 13:38] LABS: AGAP 12; ALB/GLOB RATIO 1.7; ALBUMIN 3.8 g/dL (3.5-5.0); ALKALINE PHOSPHATASE 96 U/L (32-122); BUN 13 mg/dL (8-22); CALCIUM 9.4 mg/dL (8.8-10.2); CHLORIDE 102 mmol/L (98-107); COSMO 279; CREATININE 0.9 mg/dL (0.7-1.2); ESTIMATED GFR > 60; GLUCOSE 117 mg/dL (70-104); GOT 12 U/L (10-34); GPT 9 U/L (10-44); POTASSIUM 3.3 mmol/L (3.5-5.1); SODIUM 139 mmol/L (136-145); TCO2 25 mmol/L (25-35); TOTAL BILIRUBIN 0.43 mg/dL (0.20-1.00); TOTAL PROTEIN 6.1 g/dL (6.3-8.3)
[2018-12-22] MEDS ORDERED: ROCEPHIN 1 GM in NS 50 ML IV ONE (15:14)
--- NOTE | 2018-12-22 15:16 | PROVIDER DOCUMENTATION ---
This chart was entered by Meg Johns Scribe, acting as scribe for Edmund Bynum MD. HPI-General Adult - General Chief Complaint: Nausea/Vomiting Stated Complaint: N/V,AMS,FALL Time Seen by Provider: 12/22/18 10:54 Source: patient Allergies/Adverse Reactions: Patient Allergies Allergy/AdvReac Type Severity Reaction Status Date / Time No Known Allergies Allergy Verified 05/12/18 20:28 Home Medications: Home Medication List Medication Instructions Recorded Confirmed Last Taken Type Carvedilol [Coreg] 12.5 mg PO Q12HR tab 12/19/18 Unknown Rx Hydralazine [Apresoline] 25 mg PO TID tab 12/19/18 Unknown Rx LISINOpril [Prinivil] 40 mg PO DAILY tab 12/19/18 Unknown Rx Lamotrigine [Lamictal] 100 mg PO BID tab 12/19/18 Unknown Rx - History of Present Illness -Gen Adult Nature of Presenting Problems: Patient is a 73 year old male who presents to the ED via EMS with nausea and vomiting since this morning. EMS states residential's GENERAL MATCHER stated patient has had several falls over the last 2 days. EMS states unknown if patient had a head injury. Patient denies pain. History of CVA with left side deficits. EMS states patient has a craniotomy 6 months ago to have a blood clot removed. Location of Pain/Injury: reports: none Pain Radiation: reports: no radiation Quality of Pain: reports: none Severity: reports: mild Onset/Duration: reports: this morning Timing: reports: still present Context/Activities at Onset: reports: light activity Associated Symptoms: reports: nausea, vomiting Similar Symptoms Previously?: No Recently seen or treated by another doctor?: Yes Review of Systems - Adult - REVIEW OF SYSTEMS - ADULT Constitutional: reports: no symptoms reported. denies: chills, fever, fatique Eyes: reports: no symptoms reported Ears, Nose, Mouth & Throat: reports: no symptoms reported Cardiovascular: reports: no symptoms reported Respiratory: reports: no symptoms reported Gastrointestinal: reports: see HPI, nausea, vomiting. denies: abdominal pain, diarrhea Genitourinary: reports: no symptoms reported Musculoskeletal: reports: no symptoms reported. denies: back pain, muscle aches, neck pain Integumentary: reports: no symptoms reported Neurological: reports: no symptoms reported Psychiatric: reports: no symptoms reported Endocrine: reports: no symptoms reported Hematologic/Lymphatic: reports: no symptoms reported Allergic/Immunologic: reports: no symptoms reported All Other Systems: Reviewed and Negative Past History - Adult - PAST MEDICAL HISTORY-ADULT Review of Records: reports: Old Records Reviewed, Nursing Assessment Review, Medications Reviewed, Social history reviewed & non-contributory. Major Childhood Illnesses: reports: denies history Cardiovascular: reports: HTN Respiratory: reports: denies history Gastrointestinal: reports: denies history Obstetrical/Gynecological: reports: denies history Genitourinary: reports: denies history Musculoskeletal: reports: denies history Neurological: reports: CVA, Seizures/Epilepsy Psychiatric: reports: denies history Endocrine/Immune: reports: denies history Other Conditions: reports: denies history - PRIOR SURGERIES/PROCEDURES Surgical/Procedure History: reports: none - IMMUNIZATION STATUS Childhood Immunizations: See Nurse Assessment Flu Vaccine: See Nurse Assessment - FAMILY HISTORY Family History: reviewed, not pertinent - SOCIAL HISTORY Smoking: denies Substance Use: denies Living Situation: care facility (SNF) Physical Exam-General - PHYSICAL EXAM-ADULT Initial Vital Signs Reviewed: Yes - CONSTITUTIONAL General Appearance: alert, no apparent distress. negative: lethargic, slow to respond - HEAD, EARS, NOSE, MOUTH & THROAT HENMT: normocephalic/atraumatic, moist mucous membranes. negative: angioedema, hearing deficit - RESPIRATORY Respiratory: chest non-tender, lungs clear, normal breath sounds. negative: crackles, rhonchi, wheezing - CARDIOVASCULAR Cardiovascular: normal peripheral pulses, regular rate, rhythm. negative: tachycardia, systolic murmur - GASTROINTESTINAL (ABDOMEN) Abdominal Exam: normal bowel sounds, non tender, soft. negative: guarding, rigid - MUSCULOSKELETAL Extremity: non-tender, normal inspection. negative: deformity, erythema - SKIN Integumentary: normal color, normal turgor, warm/dry. negative: ecchymosis, erythema, jaundice - NEUROLOGIC Neurologic: facial droop (left side. chronic from prior CVA). negative: aphasia, motor weakness - PSYCHIATRIC Psych/Mental Status: normal mood/affect, oriented x 3. negative: anxious Progress - PLAN OF CARE/RESULTS Progress/Plan/Lab Results: Vital Signs - 8 hr 12/22/18 11:16 Temperature 97.7 F Pulse Rate 64 Respiratory Rate 18 Blood Pressure 134/80 O2 Sat by Pulse Oximetry 97 Orders Category Date Time Status CT HEAD W/O CONTRAST [CT] Stat Exams 12/22/18 10:38 Completed Result Diagrams: 12/22/18 13:00 12/22/18 13:00 - XRAY 1 XRAY Study: Chest Impression: See EMR Report (EXAM: CHEST-1 VIEW HISTORY: cough TECHNIQUE: Chest single view COMPARISON: 12/17/2018 FINDINGS: Poor inspiratory effort. Mild increased interstitial markings most pronounced in the mid left lung. Heart is borderline mildly prominent. No pleural effusions. Right lung remains clear. IMPRESSION: Small infiltrate versus mild pulmonary edema. Electronically signed by Sergo Nina 12/22/2018 12:59 PM 12/22/18 1259 Interpreting Physician: Sergo Nina MD Dictated Date/Time: 12/22/18 1258 cc: Edmund Bynum MD; Fuentes Crews MD) - CT/MRI 1 CT Study: Head Impression: See EMR Report ( CT HEAD W/O CONTRAST - 12/22/2018 INDICATION: ams COMPARISON: 12/14/2018 FINDINGS: Stable diffuse cerebral atrophy. Stable advanced periventricular white matter chronic microvascular disease. Stable large old infarction at the right middle cerebral artery territory. No intracranial mass or hemorrhage. Stable craniectomy changes at the lateral right side of the calvarium. No acute fractures. There is a small amount of fluid in the right mastoids stable from prior. IMPRESSION: No acute process. This exam was performed using automated exposure control, adjustment of mA or kV according to patient size, and/or use of iterative reconstruction technique Electronically signed by Augustine Gutierrez 12/22/2018 10:53 AM 12/22/18 1053 Interpreting Physician: Augustine Gutierrez MD Dictated Date/Time: 12/22/18 1052 cc: Edmund Bynum MD; Fuentes Crews MD) - CONSULTS/PCP/HOSPITALIST Notification #1 *Consult/PCP/Hospitalist*: CHRISTOPHER Fall for Hospitalist Time Discussed: 15:10 Reason/Comments: Dr. Bynum consulted with Eufemia about patient. Consult Disposition: Will see in ED, Admit Departure - Departure Date of Disposition Decision: 12/22/18 Time of Disposition Decision: 15:11 DIAGNOSIS: Vomiting, Pneumonia Disposition: ADMITTED INPATIENT 09 Certified Medical Emergency: Emergent Condition: Stable Referrals and Follow-Ups: Fuentes Crews MD [Primary Care Provider] - - Critical Care Note This patient required my direct & personal management of CC.: No Attestation - Physician/ EMILIE Attestation Patient care was provided by Advanced Practice Provider:: No The physician spent face to face time with patient:: Yes Advanced Practice Provider documentation review:: Supervising physician onsite and consulted in the evaluation and care of this patient. The physician did have a face to face encounter with the patient. This chart was documented by the indicated scribe, (Meg Johns Scribe) and accurately reflects the services I performed and decisions made by me, Edmund Jorge MD, as attested by the provider's signature.
[2018-12-22] MEDS ORDERED: ROCEPHIN 1 GM in NS 50 ML IV SCH (16:15)
[2018-12-22] MEDS: LEVAQUIN 750 MG/D5W 750 MG/150 ML IVPB IV SCH (19:42)
[2018-12-22] MEDS ORDERED: NS 1,000 ML IV SCH (19:45)
[2018-12-22] MEDS: APRESOLINE PO SCH (19:51)
[2018-12-22] MEDS: APRESOLINE IV PRN (21:36)
[2018-12-23 07:02] LABS: BASO# 0.02 X1000 (0.0-0.2); BASO% 0.2 % (0.0-0.8); EOS% 3.2 % (0.0-10.0); HEMATOCRIT 38.6 % (42.0-52.0); IMM GRAN# 0.03 X1000 (0.0-0.04); IMM GRAN% 0.3 % (0.0-0.5); LYMPH# 1.25 X1000 (1.2-3.4); LYMPH% 13.3 % (20.5-51.1); MCH 29.7 PG (27-31); MCHC 33.7 g/dL (33-37); MCV 88.3 FL (81-99); MONO# 0.71 X1000 (0.11-0.59); MONO% 7.6 % (1.7-9.3); MPV 12.3 FL (7.4-10.4); NEUT# 7.08 X1000 (1.4-6.5); NEUT% 75.4 % (42.2-75.2); PLT 161 X1000 (130-400); RBC 4.37 XMIL (4.7-6.1); RDW 13.2 % (11.5-14.5); WBC 9.39 X1000 (4.8-10.8)
[2018-12-23 07:20] LABS: AGAP 12; ALB/GLOB RATIO 1.4; ALBUMIN 3.6 g/dL (3.5-5.0); ALKALINE PHOSPHATASE 95 U/L (32-122); BUN 11 mg/dL (8-22); CALCIUM 9.4 mg/dL (8.8-10.2); CHLORIDE 104 mmol/L (98-107); COSMO 281; CREATININE 0.8 mg/dL (0.7-1.2); ESTIMATED GFR > 60; GLUCOSE 101 mg/dL (70-104); GOT 11 U/L (10-34); GPT 7 U/L (10-44); POTASSIUM 2.9 mmol/L (3.5-5.1); SODIUM 141 mmol/L (136-145); TCO2 25 mmol/L (25-35); TOTAL BILIRUBIN 0.45 mg/dL (0.20-1.00); TOTAL PROTEIN 6.2 g/dL (6.3-8.3)
--- NOTE | 2018-12-23 07:35 | Diag Imaging Result Doc PS360 ---
EXAM: CHEST-PORTABLE INDICATION: Pneumonia TECHNIQUE: One view COMPARISON: 12/22/2018 FINDINGS: There is better inspiration on the current study. The increased interstitial markings are less pronounced on the current study. No new consolidation is identified. Cardiac silhouette is stable. IMPRESSION: Interval improvement. Electronically signed by Luis Petersen 12/23/2018 7:33 AM
--- NOTE | 2018-12-23 09:48 | HISTORY AND PHYSICAL ---
RN ONCOLOGY RESEARCH: None. CHIEF COMPLAINT: Nausea and vomiting, and difficulty walking. HISTORY OF PRESENT ILLNESS: Mr. Vides is a 73-year-old male, who presents to the ER today with complaints of nausea and vomiting and difficulty walking. Mr. Vides is somewhat altered mental status and a poor historian lying in an ER stretcher, keeps asking for his nephew. Mr. Vides does speak Slovak and Cypriot and is able to converse with me but he is confused. at the present time. According to the ER record, the patient has been having nausea and vomiting and difficulty walking. Chest x-ray in the ER showed small infiltrates versus mild pulmonary edema mostly in the left lung. Mr. Vides comes to us from a local rehab facility he was recently discharged on 12/19/2018 from [facility] to this rehab facility. The patient was recently admitted to [facility] on 12/14/2018 for new onset seizure activity. The patient now presents today with c/o nausea and vomiting and difficulty walking and altered mental status for a unknown amount of time. Family is not present in the room and Mr. Vides is a poor historian and unable to give complete history to me at this present time. Upon assessment, lung sounds are clear. Abdomen is a little tender to touch. Bowel sounds are present. Mr. Vides is in no acute distress on room air at this time. He is lying in ER stretcher and does not have any complaints of nausea at this time. Blood cultures were obtained in the ER and they are pending. Rocephin 1 g was also given in the ER. PAST MEDICAL HISTORY: 1. History of CVA. 2. History of craniotomy 6 months ago with clot removal. 3. Seizure. 4. Hypertension. 5. Failure to thrive. 6. E. coli urinary tract infection. PAST SURGICAL HISTORY: Craniotomy. FAMILY HISTORY: Nonsignificant at this time. SOCIAL HISTORY: The patient lived at a local long term. Denies any alcohol, smoking, or illicit drug abuse at this time. ALLERGIES: No known drug allergies. MEDICATIONS: Hydralazine 25 mg p.o. t.i.d., lisinopril 40 mg p.o. daily, Coreg 12.5 mg p.o. daily, Lamictal 100 mg p.o. b.i.d. LABS AND DIAGNOSTICS: Sodium level 139, potassium 3.3, carbon dioxide 25, BUN 13, creatinine 0.9, GFR greater than 60, glucose 117, calcium 9.4, AST 12, ALT 9, alkaline phosphatase 96. Troponin less than 0.01. Hematology 10.53, hemoglobin 12.9, hematocrit 38.2, platelet count 164. Urine is negative. Chest x-ray shows small infiltrates versus mild pulmonary edema. REVIEW OF SYSTEMS: A 12-point review of systems was performed, all were negative except what is stated above in the HPI. PHYSICAL EXAMINATION: VITAL SIGNS: Temperature 97.7, pulse rate 68, respiratory rate 16, blood pressure 140/76, O2 saturation 95% on room air. GENERAL: This is a thin-looking 73-year-old male lying in an ER stretcher in no acute distress at present time. HEENT: Atraumatic, normocephalic. Pupils equal, round, and reactive to light. Mucous membranes dry. No dentition. NECK: Supple. No lymphadenopathy. Trachea midline. No JVD. CARDIOVASCULAR: No murmur, gallops, or rubs appreciated. Regular rate and rhythm. RESPIRATORY: Lungs sounds are clear, equal, no chest excursion noted. Nonlabored respirations. No accessory muscle usage. GASTROINTESTINAL: Abdomen is tender to touch. Bowel sounds are present x4. Abdomen is nondistended. NEUROLOGIC: Awake, alert. The patient is oriented to person, not oriented to place or time. MUSCULOSKELETAL: Full distal strength noted. No deformities. EXTREMITIES: No clubbing, cyanosis, or edema. DP and PT pulses are present and palpable. SKIN: Warm, dry, and intact. No rashes or bruises or turgor is noted. ASSESSMENT: 1. Pneumonia versus pulmonary edema. 2. Altered mental status. 3. History of cerebrovascular accident. 4. Recent seizure. 5. Hypertension. 6. Adult failure to thrive. 7. History of craniotomy with clot removal. PLAN: Will admit the patient to the Medical floor, start the patient on antibiotics, place the patient on air sampling and monitoring, and monitor the patient. Repeat a.m. labs and chest x-ray. Dictated by CHRISTOPHER Tierney for Marquis Lerma MD Patient seen and examined by me face to face, all the laboratory, vitals signs, images were reviewed, patient has been admitted due to some confusion, I do not know his baseline, he has a history of CVA with residual weakness, it looks like he can not see very well because he was not able to count my fingers, and was not able to see my face, but again I do not know if this is normal for him, X ray showed some infiltrates, he will be placed on antibiotics, telemetry, no family at the bedside I agree with the INSURANCE AGENTS SUPERVISOR's assessment and plan, Marquis Yates MD. cc: Marquis Lerma MD MTDD
[2018-12-23] MEDS: LAMICTAL PO SCH (10:48)
[2018-12-23] MEDS: COREG PO SCH (10:48)
[2018-12-23] MEDS: POTASSIUM CHLORIDE 20 MEQ/SWI 20 MEQ/100 ML IVPB IV SCH ×2 (12:08→14:53)
[2018-12-23] MEDS ORDERED: LASIX PO ONE (14:01)
[2018-12-23] MEDS: LEVAQUIN 750 MG/D5W 750 MG/150 ML IVPB IV SCH (17:02)
[2018-12-23] MEDS: APRESOLINE IV PRN (20:12)
[2018-12-24 10:12] LABS: BASO# 0.06 X1000 (0.0-0.2); BASO% 0.6 % (0.0-0.8); EOS% 3.1 % (0.0-10.0); HEMATOCRIT 40.8 % (42.0-52.0); HEMOGLOBIN 13.8 g/dL (14.0-18.0); IMM GRAN# 0.03 X1000 (0.0-0.04); IMM GRAN% 0.3 % (0.0-0.5); LYMPH# 1.62 X1000 (1.2-3.4); MCH 30.1 PG (27-31); MCHC 33.8 g/dL (33-37); MCV 88.9 FL (81-99); MONO# 0.62 X1000 (0.11-0.59); MONO% 6.5 % (1.7-9.3); MPV 11.8 FL (7.4-10.4); NEUT% 72.5 % (42.2-75.2); PLT 166 X1000 (130-400); RBC 4.59 XMIL (4.7-6.1); RDW 13.6 % (11.5-14.5); WBC 9.53 X1000 (4.8-10.8)
[2018-12-24] MEDS: APRESOLINE IV PRN (10:22)
[2018-12-24 10:42] LABS: AGAP 11; BUN 12 mg/dL (8-22); CALCIUM 9.6 mg/dL (8.8-10.2); CHLORIDE 102 mmol/L (98-107); COSMO 283; CREATININE 0.9 mg/dL (0.7-1.2); ESTIMATED GFR > 60; GLUCOSE 107 mg/dL (70-104); POTASSIUM 3.5 mmol/L (3.5-5.1); SODIUM 142 mmol/L (136-145); TCO2 29 mmol/L (25-35)
[2018-12-24] MEDS: APRESOLINE PO SCH (14:22)
[2018-12-24] MEDS: LEVAQUIN 750 MG/D5W 750 MG/150 ML IVPB IV SCH (16:55)
[2018-12-25] MEDS: APRESOLINE PO SCH ×4 (00:34→17:17)
[2018-12-25] MEDS: LAMICTAL PO SCH ×3 (00:35→23:05)
[2018-12-25] MEDS: COREG PO SCH ×3 (00:35→23:05)
[2018-12-25] MEDS: APRESOLINE IV PRN (01:27)
[2018-12-25 07:01] LABS: BASO# 0.04 X1000 (0.0-0.2); BASO% 0.2 % (0.0-0.8); EOS# 0.25 X1000 (0.0-0.7); EOS% 1.5 % (0.0-10.0); HEMATOCRIT 44.9 % (42.0-52.0); HEMOGLOBIN 14.9 g/dL (14.0-18.0); IMM GRAN# 0.11 X1000 (0.0-0.04); IMM GRAN% 0.6 % (0.0-0.5); LYMPH# 1.29 X1000 (1.2-3.4); LYMPH% 7.6 % (20.5-51.1); MCH 29.7 PG (27-31); MCHC 33.2 g/dL (33-37); MCV 89.4 FL (81-99); MONO% 5.3 % (1.7-9.3); NEUT# 14.46 X1000 (1.4-6.5); NEUT% 84.8 % (42.2-75.2); PLT 124 X1000 (130-400); RBC 5.02 XMIL (4.7-6.1); RDW 13.9 % (11.5-14.5); WBC 17.05 X1000 (4.8-10.8)
[2018-12-25 07:16] LABS: AGAP 17; BUN 18 mg/dL (8-22); CALCIUM 9.9 mg/dL (8.8-10.2); CHLORIDE 101 mmol/L (98-107); COSMO 285; CREATININE 1.1 mg/dL (0.7-1.2); ESTIMATED GFR > 60; GLUCOSE 124 mg/dL (70-104); POTASSIUM 3.5 mmol/L (3.5-5.1); SODIUM 141 mmol/L (136-145); TCO2 23 mmol/L (25-35)
--- NOTE | 2018-12-25 07:19 | Diag Imaging Result Doc PS360 ---
EXAM: CHEST-PORTABLE HISTORY: cough, ? Pulm edema TECHNIQUE: Portable chest single view COMPARISON: 12/23/2018 FINDINGS: The lungs are well expanded. Tortuous aorta. No cardiomegaly. No pulmonary edema. No pleural effusions identified. Right paratracheal density is similar to 12/17/2018. When the patient is rotated this area is less well seen. IMPRESSION: Possible right upper lobe lesion. A CT is recommended to ensure there is no underlying mass. Electronically signed by Sergo Nina 12/25/2018 7:17 AM
[2018-12-25] MEDS: PRINIVIL PO SCH (08:58)
--- NOTE | 2018-12-25 10:13 | Diag Imaging Result Doc PS360 ---
EXAM: CT THORAX W/O CONTRAST INDICATION: ?lung mass, leukocytosis, tachycardia, cough. TECHNIQUE: This exam was performed using automated exposure control, adjustment of mA or kV according to patient size, and/or use of iterative reconstruction technique. COMPARISON: No prior chest CT is available for comparison. FINDINGS: There is cardiomegaly. There is a prominent descending thoracic aortic aneurysm. It is at its greatest diameter just before it passes through the aortic hiatus of the diaphragm where it measures up to 6 cm. This could be secondary to an aortic dissection as there are a few calcifications in the lumen of the aorta, which could be an intimal flap. However, without contrast this is indeterminate. A prominent brachiocephalic artery on the right and prominent and tortuous right subclavian and right common carotid arteries accounts for the masslike lesion in the right paratracheal region seen on the recent chest radiograph. There is a calcified granuloma in the anterior right upper lobe. There is groundglass infiltrate at the right lung base suggesting pneumonia. There may also be a component of atelectasis. There is no pleural fluid collection and no pneumothorax. Limited views of the upper abdomen reveals an IVC filter in place. The upper abdomen is grossly unremarkable, otherwise. IMPRESSION: 1.Prominent descending thoracic aortic aneurysm that could be secondary to an underlying dissection. Please see above discussion. 2.The masslike prominence seen in the right paratracheal region on the recent chest radiograph is due to prominent vasculature. 3.Groundglass consolidation at the left lung base posteriorly suggesting likely pneumonia. Electronically signed by Luis Petersen 12/25/2018 10:11 AM
[2018-12-25] MEDS ORDERED: APRESOLINE IV PRN (11:20)
[2018-12-25] MEDS ORDERED: NORVASC PO SCH ×2 (11:30→14:15)
--- NOTE | 2018-12-25 13:03 | Diag Imaging Result Doc PS360 ---
EXAM: CT ANGIOGRAM THORAX INDICATION: ? aortic dissection TECHNIQUE: This exam was performed using automated exposure control, adjustment of mA or kV according to patient size, and/or use of iterative reconstruction technique. Thin section axial images and 3-D MIPS were obtained. COMPARISON: CT chest without contrast performed earlier today. FINDINGS: As was suspected on the unenhanced recent study, there is an aortic dissection. It begins at the proximal portion of the descending aorta and extends throughout the entire abdominal aorta and into the left common iliac artery and out of the [id number]. The false lumen is larger than the true lumen, especially at the descending aorta. Both the true and the false lumen opacify with contrast. The prominent descending thoracic aortic aneurysm seen on the recent unenhanced study is largely due to the dilated false lumen. It measures up to 6.0 x 5.0 cm axially. At the widest section of the aneurysm at the lower descending thoracic aorta, the false lumen contains significant thrombus along with flowing opacified blood. There is no abdominal aortic aneurysm. In the abdomen, the mesenteric arteries, celiac trunk, and renal arteries all arise from the true lumen. There is aneurysmal dilation of the partially imaged left common iliac artery which measures up to 2.2 cm in diameter. The lung parenchyma including the consolidation at the left lung base is essentially stable. Review of the abdomen reveals a distended gallbladder with no pericholecystic inflammatory change. The liver, spleen, adrenal glands, and pancreas are grossly unremarkable. There are a few small simple appearing left renal cyst. Both kidneys exhibit normal enhancement. An infrarenal IVC over is in place. The visualized abdominal segments of the GI tract are essentially unremarkable. IMPRESSION: 1.Aortic dissection as detailed above beginning at the descending thoracic aorta extending through the abdominal aorta and into the left common iliac artery and out of the [id number]. 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 3.Stable airspace consolidation at the left lung base. 4.Other incidental/nonacute findings detailed above. Electronically signed by Luis Petersen 12/25/2018 1:01 PM
[2018-12-25] MEDS ORDERED: VANCOMYCIN IV PER PHARMACY MISC SCH (13:15)
[2018-12-25] MEDS: NS 1,000 ML IV SCH (14:41)
[2018-12-25] MEDS: MAXIPIME 2 GM in NS 100 ML IV SCH (14:56)
[2018-12-25] MEDS ORDERED: VANCOMYCIN 1,950 MG in NS 500 ML IV ONE (15:00)
[2018-12-25] MEDS: ZOFRAN IV PRN (15:01)
--- NOTE | 2018-12-25 16:04 | PROGRESS NOTE ---
DATE: 12/25/2018 INTERVAL HISTORY: The patient remains largely asymptomatic, but has had some intermittent mild tachycardia, increased leukocytosis today, prompting a CT of the chest to look for new infection. On that, there was found possible aortic aneurysm prompting a CTA, which did confirm an extensive descending aortic aneurysm along pretty much the entire length down into the left iliac. No evidence of malperfusion was noted. I placed a call to [facility] to discuss with Cardiothoracic Surgery there. I spoke with Dr. Imtiaz Nievse. He reviewed the films and discussed the patient's current clinical status. After review, he felt that while the size of the dissection would likely justify stenting at some point, he recommended initially medical management with tight control of blood pressure and follow up with them as an outpatient in a few weeks to schedule this electively. We will plan on doing that. Will call them back if any signs or lack of organ perfusion that could indicate worsening of his dissection develop. Patient denies any chest pain, abdominal pain, pain with food, cough, dyspnea. REVIEW OF SYSTEMS: Twelve point review of systems negative, except as per interval history. LABS: WBC 17.05, hemoglobin 14.9, hematocrit 44.9, platelets 124. Sodium 141, potassium 3.5, bicarbonate 23, gap 17. BUN 18, creatinine 1.1, glucose 124. IMAGIN. CT chest with descending thoracic aortic aneurysm with possible dissection. Masslike prominence in the right peritracheal region. Ground-glass consolidation in the left lung suggesting pneumonia. 2. CTA aorta with definite aortic dissection beginning at the early descending aorta through the abdominal aorta and into the left common iliac associated prominent aneurysm at the distal descending thoracic aorta, as well as aneurysm at the left common iliac artery. Stable airspace consolidation to the left lung base. Previous concern for mass was found to be a benign prominence of vasculature. VITALS: T-max 98.8 degrees, pulse 76, respirations 18, blood pressure 126/75, O2 saturation 98% on room air. PHYSICAL EXAMINATION: General: No acute distress. Vitals: As above. HEENT: Normocephalic, atraumatic. Moist mucous membranes. Neck: No cervical adenopathy. Cardiovascular: Slightly tachycardic, but regular. No murmurs noted. Pulmonary: Largely clear to auscultation bilaterally. Possible slight crackle at left base. Abdomen: Soft, nontender, nondistended. Bowel sounds positive. Extremities: Peripheral pulses decreased, but intact. No clubbing, cyanosis. Neurologic: Cranial nerves grossly intact. Mild global weakness, but no focal deficits identified. Psychiatric: Still with very flat affect. Speech is slow, but largely appropriate. Some times requires repeated prompting to answer questions, but oriented x3. Skin: No new rashes or lesions identified. ASSESSMENT AND PLAN: 1. Pneumonia. Initially admitted with nausea, vomiting, confusion. These have resolved. Initial evaluation showed pneumonia versus pulmonary edema. BNP was mildly elevated and echocardiogram is pending, but suspect more pneumonia at this time. The patient was improved rapidly initially, but this morning had increased heart rate, increased leukocytosis. CT showing left lower lobe pneumonia, which was not clearly there presently. I will change antibiotics to vancomycin and cefepime and monitor closely. 2. Large descending/type B aortic dissection. Discussion with Cardiothoracic Surgery as above. Plan on tight blood pressure control and outpatient follow-up unless patient becomes acutely symptomatic. 3. Sepsis likely secondary to pneumonia as above. Concern for treatment failure on the Levaquin he was on initially. Changing antibiotics as above. We will give fluids, although will keep rate gentle in light of elevated BNP and possible pulmonary edema on admission. Check arterial blood gas to get a lactate, and will proceed further based on results. 4. Metabolic encephalopathy likely due to infection in the setting of previous stroke, possibly some mild vascular dementia. Encephalopathy essentially resolved at this point, although still with an odd affect and slow. Continue to monitor. 5. Hypertension. Control overnight, not ideal, but well controlled this morning. In light of newly identified dissection, we will maintain tight control of blood pressure and monitor closely. 6. Adult failure to thrive. Plan on discharge to rehab once acute issues resolve and placement obtained. 7. 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 Very little in the way of residual deficits. Monitor.
--- NOTE | 2018-12-25 19:02 | PROGRESS NOTE ---
DATE: 12/23/2018 INTERVAL HISTORY: The patient remains slow but does not appear to be confused. He is cooperating and answering all questions appropriately. No further nausea or vomiting. No further abdominal pain. No other new complaints. No acute events overnight. REVIEW OF SYSTEMS: A 12-point review of systems was negative except as per interval history. LABORATORY DATA: WBC 9.3, hemoglobin 13, hematocrit 38.6, platelets 161. Sodium 141, potassium 2.9, bicarb 25, BUN 11, creatinine 0.8. BNP 690. VITALS: T-max 98.8 degrees, pulse 77, respirations 20, blood pressure 140/64, oxygen saturation 96% on room air. PHYSICAL EXAMINATION: General: No acute distress, elderly appearing. Vitals: As above. HEENT: Normocephalic, atraumatic. Pupils equal, round and reactive to light. Mucous membranes no longer dry. Patient is edentulous. Cardiovascular: Regular rate and rhythm. No murmurs noted. Pulmonary: Clear to auscultation bilaterally. No wheezes, rales or rhonchi noted. Abdomen: Soft, no longer tender. Bowel sounds positive. Extremities: Peripheral pulses intact. No clubbing, cyanosis. Neurologic: Cranial nerves grossly intact. Mild global weakness, but no focal deficits identified. Psychiatric: Slightly odd affect. Speech is slightly slow, but appropriate and clear. Patient cooperative. Currently oriented x 3. Skin: No new rashes or lesions noted. ASSESSMENT AND PLAN: 1. Possible pneumonia. Patient with possible pneumonia noted on x-ray. Placed on Levaquin on admission. Does seem to be improved now, although very little in the way of respiratory symptoms. We will continue Levaquin for now. 2. nausea and vomiting. resolved. 3. Possible pulmonary edema. Concern for edema on chest x-ray. BNP is somewhat elevated at 690. Checking echocardiogram and monitoring. We will give a small dose of Lasix. 4. Hypertension. Reasonable control on current regimen. Continue to monitor. 5. Seizure disorder. Continue home medications. 6. Hypokalemia. Still low despite repletion. We will further replete and monitor. 7. Disposition: If the patient continues to improve, then may be able to discharge home on p.o. antibiotics tomorrow, but need to evaluate for possibly undiagnosed heart failure first. [facility]
[2018-12-26] MEDS: MAXIPIME 2 GM in NS 100 ML IV SCH ×2 (01:06→14:40)
[2018-12-26 05:09] LABS: ALLEN TEST YES; BLOOD TYPE ARTERIAL; HCO3-(ACT) 27.2 mmoll (20.0-26.0); PCO2(98.6) 39 mmHg (35-45); PO2(98.6) 65 mmHg (60-100); SAMPLE BLOOD; pH(98.6) 7.45 (7.35-7.45)
[2018-12-26 05:10] LABS: MODALITY ROOM AIR
[2018-12-26] MEDS ORDERED: CATAPRES-TTS-1 TD SCH (08:45)
[2018-12-26 08:51] LABS: BASO% 0.3 % (0.0-0.8); EOS# 0.35 X1000 (0.0-0.7); EOS% 2.9 % (0.0-10.0); HEMATOCRIT 38.7 % (42.0-52.0); HEMOGLOBIN 12.7 g/dL (14.0-18.0); IMM GRAN% 0.5 % (0.0-0.5); LYMPH# 1.11 X1000 (1.2-3.4); LYMPH% 9.4 % (20.5-51.1); MCH 29.5 PG (27-31); MCHC 32.8 g/dL (33-37); MCV 89.8 FL (81-99); MONO# 0.58 X1000 (0.11-0.59); MONO% 4.9 % (1.7-9.3); MPV 11.9 FL (7.4-10.4); NEUT# 9.74 X1000 (1.4-6.5); PLT 170 X1000 (130-400); RBC 4.31 XMIL (4.7-6.1); RDW 13.8 % (11.5-14.5); WBC 11.87 X1000 (4.8-10.8)
[2018-12-26 08:52] LABS: BASO# 0.03 X1000 (0.0-0.2); IMM GRAN# 0.06 X1000 (0.0-0.04)
[2018-12-26 09:04] LABS: AGAP 11; BUN 18 mg/dL (8-22); CALCIUM 9.2 mg/dL (8.8-10.2); CHLORIDE 103 mmol/L (98-107); COSMO 281; ESTIMATED GFR > 60; GLUCOSE 131 mg/dL (70-104); POTASSIUM 3.1 mmol/L (3.5-5.1); SODIUM 139 mmol/L (136-145); TCO2 25 mmol/L (25-35)
[2018-12-26] MEDS ORDERED: TYLENOL PO PRN (09:12)
[2018-12-26] MEDS: NORVASC PO SCH (09:23)
[2018-12-26] MEDS: LAMICTAL PO SCH ×2 (09:23→21:26)
[2018-12-26] MEDS: NS 1,000 ML IV SCH ×3 (09:24→23:43)
[2018-12-26] MEDS: APRESOLINE PO SCH ×3 (09:24→17:42)
[2018-12-26] MEDS: COREG PO SCH ×2 (09:24→21:26)
[2018-12-26] MEDS: PRINIVIL PO SCH (09:24)
[2018-12-26] MEDS: APRESOLINE IV PRN (10:44)
--- NOTE | 2018-12-26 14:15 | ECHO REPORT ---
ORDER DATE: 12/23/2018 2D ECHOCARDIOGRAM: MEASUREMENTS: 1. Interventricular septum 1.4. 2. Left ventricular posterior wall 1.4. 3. Diastolic diameter 4.4 4. Left atrium 3.0. Aorta 3.5. SUMMARY: 1. Aortic valve leaflets were trileaflet. Aortic valve leaflets were mildly sclerosed. 1. Mitral valve was normal. 2. Tricuspid valve was normal. 3. Pulmonic valve was normal. 4. Peak velocity across the aortic valve less than 2 m/sec. 5. There is no aortic stenosis. 6. There is mild aortic regurgitation. 7. There is mild mitral regurgitation. 8. Peak velocity across the tricuspid valve was 2.6 m/sec. 9. Pulmonary artery systolic pressure of 38 mmHg. 10. There is mild tricuspid regurgitation. 11. Normal left ventricular cavity size. 12. Concentric left ventricular hypertrophy. 13. Estimated ejection fraction of 60%. 14. There is diastolic dysfunction. 15. There is left atrial enlargement. 16. There is no pericardial effusion or obvious intracardiac mass or thrombus seen. cc: Ramos Elizondo MD
--- NOTE | 2018-12-26 14:35 | PROGRESS NOTE ---
DATE: 12/26/2018 INTERVAL HISTORY: The patient remains fully oriented and responds to questions appropriately, but still with odd affect, and his actions do not always make sense. Observed patient trying to take pills. He seemed to have confusion about which end of the cup was open to drink from, that he had pills left in his pill cup. He is redirectable and continued answer all questions appropriately, but continues to show evidence that his mentation is not completely normal. Suspect a lot of this is chronic since his previous stroke/intracranial bleed. Blood pressure remains not ideally controlled. Further adjustments in medication as below. No new complaints. No other acute events. Discussed the patient's current diagnoses, and the importance of blood pressure control, and follow up for his aortic dissection with patient's brother. REVIEW OF SYSTEMS: Twelve point review of systems negative except as per interval history. LABORATORY: WBC 11.8, hemoglobin 12.7, hematocrit 38.7, and platelets of 170,000. Sodium 139, potassium 3.1, bicarb 25, BUN 18, creatinine 1.0 and glucose 131. ABG unremarkable. VITALS: T-max 99.1 degrees, pulse 77, blood pressure 153/82, and O2 saturation 96% on room air. PHYSICAL EXAMINATION: General: No acute distress. Vitals: As above. HEENT: Normocephalic, atraumatic. Moist mucous membranes. No cervical adenopathy. Cardiovascular: Regular rate and rhythm. No murmurs, rubs, or gallops. Pulmonary: Minimal left basilar rales. Otherwise, clear to auscultation bilaterally. Abdomen: Soft, nontender, and nondistended. Bowel sounds positive. Extremities: Peripheral pulses intact. No clubbing or cyanosis. Neurologic: Cranial nerves grossly intact. Mild global weakness. No clear focal deficits. Psychiatric: Still with odd affect. Speech remains slow but response is appropriate and clear. However, actions are frequently odd or counterproductive as above. The patient largely cooperative. Remains oriented x3. Skin: No new rashes or lesions identified. ASSESSMENT AND PLAN: 1. Pneumonia. Patient with now pneumonia noted on initial x-ray. Confirmed on most recent CT obtained after he had some worsening of tachycardia and leukocytosis on Levaquin alone. Based on that CT, antibiotics changed to vancomycin and cefepime. Heart rate improved and leukocytosis coming down since then. Continue his antibiotics for now and monitor. If he continues to improve, may consider discharge on doxycycline in the near future. 2. Type B aortic dissection found incidentally on CT chest and confirmed on CTA. Discussed with Dr. Imtiaz Nieves with cardiothoracic surgery at [place] yesterday. He reviewed the images. On discussion, he recommended strict blood pressure control and conservative management for the moment, but stated he would likely need stented in the near future. He recommended follow up with their office in 4 to 8 weeks to be considered for stenting unless patient becomes acutely symptomatic or shows signs of tissue hypoperfusion in which case we may have to revisit that. 3. Hypertension. Some adjustments made yesterday and blood pressure was initially controlled, but some elevations overnight. Increase Norvasc and Coreg, and also add a clonidine patch. Discussed with nursing the importance of blood pressure control in the setting of his dissection. There is p.r.n. hydralazine available. We will monitor blood pressure closely and shoot for tight control ideally less than 120/80. 4. Metabolic encephalopathy likely due to infection in the setting of previous stroke and possibly some mild vascular dementia. Encephalopathy resolved although he still has an odd affect and odd actions. Continue to monitor. 5. Adult failure to thrive p.o. intake reasonable. Remains somewhat weak. Plan on discharge to rehab once acute issues are resolved, and placement obtained. Hopeful for Saturday. 6. History of CVA and craniotomy after brain bleed. Some mentation/personality issues as above, but little in the way of focal neurologic deficits. Continue to monitor.
[2018-12-26] MEDS: VANCOMYCIN 1,400 MG in NS 250 ML IV SCH (15:36)
[2018-12-27] MEDS: MAXIPIME 2 GM in NS 100 ML IV SCH ×2 (00:56→12:59)
[2018-12-27] MEDS: APRESOLINE IV PRN ×2 (02:09→22:58)
[2018-12-27] MEDS: NS 1,000 ML IV SCH ×2 (05:48→12:58)
[2018-12-27] MEDS ORDERED: APRESOLINE IV ONE (06:01)
--- NOTE | 2018-12-27 07:10 | Diag Imaging Result Doc PS360 ---
EXAM: CHEST-PORTABLE HISTORY: dyspnea TECHNIQUE: Portable chest single view COMPARISON: 12/25/2018 FINDINGS: The lungs are well expanded. The heart is mildly enlarged. The vessels are not distended. There are no infiltrates. No effusion identified. IMPRESSION: Mildly prominent heart. Electronically signed by Sergo Nina 12/27/2018 7:07 AM
[2018-12-27 07:14] LABS: BASO# 0.04 X1000 (0.0-0.2); BASO% 0.4 % (0.0-0.8); EOS# 0.56 X1000 (0.0-0.7); EOS% 5.1 % (0.0-10.0); HEMOGLOBIN 12.7 g/dL (14.0-18.0); IMM GRAN# 0.06 X1000 (0.0-0.04); IMM GRAN% 0.5 % (0.0-0.5); LYMPH# 0.94 X1000 (1.2-3.4); LYMPH% 8.6 % (20.5-51.1); MCH 30.6 PG (27-31); MCHC 32.6 g/dL (33-37); MONO# 0.68 X1000 (0.11-0.59); MONO% 6.2 % (1.7-9.3); MPV 12.3 FL (7.4-10.4); NEUT# 8.64 X1000 (1.4-6.5); NEUT% 79.2 % (42.2-75.2); PLT 141 X1000 (130-400); RBC 4.15 XMIL (4.7-6.1); RDW 14.1 % (11.5-14.5); WBC 10.92 X1000 (4.8-10.8)
[2018-12-27 07:34] LABS: AGAP 12; BUN 14 mg/dL (8-22); CALCIUM 8.9 mg/dL (8.8-10.2); CHLORIDE 105 mmol/L (98-107); COSMO 274; CREATININE 0.8 mg/dL (0.7-1.2); ESTIMATED GFR > 60; GLUCOSE 100 mg/dL (70-104); POTASSIUM 3.6 mmol/L (3.5-5.1); SODIUM 137 mmol/L (136-145); TCO2 20 mmol/L (25-35)
[2018-12-27] MEDS: PRINIVIL PO SCH (10:37)
[2018-12-27] MEDS: APRESOLINE PO SCH ×3 (10:37→23:02)
[2018-12-27] MEDS: NORVASC PO SCH (10:37)
[2018-12-27] MEDS: LAMICTAL PO SCH ×2 (10:37→22:57)
[2018-12-27] MEDS: COREG PO SCH ×2 (10:37→22:57)
[2018-12-27] MEDS: ZOFRAN IV PRN (11:31)
[2018-12-27] MEDS: VANCOMYCIN 1,400 MG in NS 250 ML IV SCH (15:49)
--- NOTE | 2018-12-27 19:26 | PROGRESS NOTE ---
DATE: 12/27/2018 INTERVAL HISTORY: His vitals were within acceptable range. He did not have any tachycardia episode. His systolic blood pressure was around 120. SUBJECTIVE: He is alert. He is following simple commands, but often times has tangentiality of thought process. Currently temperature of 97.9 degrees, pulse 72, respiratory rate 17, blood pressure 128/75, saturating 96% on room air. General: Does not appear in any acute distress. Oral cavity has missing teeth. Air entry bilaterally equal. No wheeze, rhonchi, crackles. S1, S2 normal. No murmur, rub or gallop. He does have mild inspiratory infrascapular crackles. Abdomen is soft, nontender. Active bowel sounds. No lower extremity edema. Neurologic: He does not have any obvious facial droop. He is able to lift his right upper extremity above ground level. Left upper extremity overhead abduction he is not able to do. He tells me that he has been in the hospital because he had a stroke; however, he does not know about his pneumonia or aortic dissection. LABORATORY DATA: He has normal WBC count, normal hemoglobin, normal platelet count. His electrolytes are within acceptable range. No new microbiological data. DIAGNOSTIC DATA: Chest x-ray performed today does not detect any infiltrate, though his chest/thorax CTA did have left lung base air-space consolidation which was mild degree. ASSESSMENT AND PLAN: 1. Left lower lobe pneumonia with worsening tachycardia and leukocytosis, on Levaquin which was recently changed to vancomycin and cefepime on 12/25/2018. Though the chest x-ray looks clear, my plan is to get procalcitonin and give him a short course of antibiotics up to 5 days. Depending on his WBC as well as procalcitonin, I will discontinue antibiotics. 2. Type B aortic dissection found incidentally on CT involving descending thoracic and abdominal aorta, with abdominal aortic aneurysm of up to 6 cm. Continue to manage his heart rate and essential hypertension with amlodipine, carvedilol, clonidine, lisinopril and hydralazine. His case was discussed by previous hospitalist with Dr. Imtiaz Nieves of Cardiothoracic Surgery at [facility]. On his review of images, he had recommended conservative management for now, with outpatient followup in his office in 4-6 weeks to be considered for stenting, unless the patient becomes acutely symptomatic or shows signs of tissue hypoperfusion. 3. Acute encephalopathy due to left lower lobe pneumonia, most likely due to previous history of stroke and a degree of vascular dementia as well. Currently appears to be at baseline. 4. He did have history of cerebrovascular accident and craniotomy after brain bleed. 5. Disposition: I called patient's brother and discussed with him about patient's clinical condition. I tried to explain to him about patient's dissection and need for outpatient cardiothoracic surgery follow up. I think he should be ready for discharge in next 1-2 days. cc: Lanre Levine MD MTDD
[2018-12-28] MEDS: MAXIPIME 2 GM in NS 100 ML IV SCH (01:15)
[2018-12-28] MEDS: APRESOLINE IV PRN (06:17)
[2018-12-28] MEDS: COREG PO SCH ×2 (09:04→21:39)
[2018-12-28] MEDS: PRINIVIL PO SCH (09:04)
[2018-12-28] MEDS: NORVASC PO SCH (09:04)
[2018-12-28] MEDS: LAMICTAL PO SCH ×2 (09:04→21:38)
[2018-12-28] MEDS: APRESOLINE PO SCH ×3 (09:04→21:38)
[2018-12-28] MEDS: OMNICEF PO SCH ×2 (10:37→21:38)
[2018-12-28] MEDS: DOXYCYCLINE PO SCH ×2 (10:37→21:39)
--- NOTE | 2018-12-28 12:03 | PROGRESS NOTE ---
DATE: 12/28/2018 SUBJECTIVE: Patient does not appear interested in participating with his care today. He refuses to answer questions, only speaking in [place] but then in clear [place], he tells me not to touch his chest as I was attempting to listen to him breathe. The patient is refusing to allow IV access and demanding that his IV is out, also in clear [place]. PHYSICAL EXAMINATION: Temperature 98.5, pulse 67, respiratory rate 18, BP 143/75. General: Patient is in no respiratory distress. He is awake, alert. He is lying in the bed. HEENT: Normocephalic. Neck: Supple. Cardiovascular: Regular rate. Chest: Appeared clear but with a very limited exam due to patient's refusal. Abdomen: Unable to assess due to his refusal. Extremities: Moves all extremities well. Neurologic: He appears to have no focal neurologic changes. ASSESSMENT: 1. Left lower lobe pneumonia. The patient is refusing any intravenous access. Therefore, we will stop vancomycin and cefepime and change to Omnicef and doxycycline as he states that he will take pills but will no longer allow his intravenous access to be used. 2. Type B aortic dissection. 3. History of cerebrovascular accident and craniotomy, a brain bleed, and recent seizure. 4. Metabolic encephalopathy. PLAN: The patient overall appears back to his baseline. We will change his IV over to oral antibiotics. We will follow and hopefully can discharge home over the next 1 or 2 days. cc: Naeem Young MD
[2018-12-28 21:36] VITALS: BP 140/75
[2018-12-29] MEDS: APRESOLINE PO SCH ×2 (08:14→14:22)
[2018-12-29] MEDS: NORVASC PO SCH (08:14)
[2018-12-29] MEDS: PRINIVIL PO SCH (08:14)
[2018-12-29] MEDS: OMNICEF PO SCH (08:14)
[2018-12-29] MEDS: LAMICTAL PO SCH (08:14)
[2018-12-29] MEDS: COREG PO SCH (08:15)
[2018-12-29] MEDS: DOXYCYCLINE PO SCH (08:15)
--- NOTE | 2018-12-29 12:21 | DISCHARGE SUMMARY ---
ADMISSION DATE: 12/22/2018 DISCHARGE DATE: DISCHARGE DIAGNOSES: 1. Pneumonia, left lower lobe. 2. Type B aortic dissection. 3. Metabolic encephalopathy. CONSULTATIONS: None. PROCEDURES: None. HOSPITAL COURSE: Briefly this is a 73-year-old male presenting with nausea/vomiting. He has a history of CVA, craniotomy, seizure, failure to thrive. 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 He was admitted for pneumonia of the left lower lobe. He had been placed on Levaquin. Pulmonary edema. CT scan was done emergently because there was concern over an aneurysm with aortic dissection and some pneumonia noted on the CT. The CTA showed an aortic dissection, descending thoracic aorta extending through the abdominal aorta into the left common iliac, but it was felt to be old. Dr. Peters contacted the [facility] cardiothoracic surgeon, Dr. Nieves, and felt that medical management with blood pressure control. Clinically, he stabilized. Plan was to follow his chest x-ray. Improved. Infiltrates resolved per the chest x- ray on the . On the , he was breathing comfortably, 99% on room air. He was afebrile, and he was felt stable for discharge. He will be discharged on Catapres 1 patch weekly. Coreg 20 12.5 b.i.d. Doxycycline 100 p.o. b.i.d. for 7 days. Lamictal 100 b.i.d. Norvasc 10 p.o. daily. Omnicef 300 b.i.d. for 7 days. Lisinopril 40 daily. DISCHARGE CONDITION: Stable. Would also recommend follow up with Dr. Nieves in [place] once he completes rehabilitation which we are going to pursue today. cc: MD Fuentes Cruz MD
== END 2018-12-29 16:27 | DRG 193 ==
LOC: SUPCPDRO → ED 10:36 → SUATTDRO 17:31 → 3N 17:31
PROVIDERS: ATTEND Internal Medicine
CPT/HCPCS: 70450; 71010; 71045; 71250; 71275; 80048; 80053; 81001; 82805; 83880; 84145; 84484; 85025; 87040; 93306; 94761; 94799; 96365; 99285; A9270; J0360; J0692; J0696; J1956; J2405; J3370; J3480; J7030; J7040; J7050; Q9967

== ENCOUNTER 2019-09-01 21:22 | Inpatient (IN) ==
[2019-09-01] MEDS ORDERED: KEPPRA 1,000 MG in NS 100 ML IV ONE (21:38)
[2019-09-01 22:08] LABS: BASO# 0.04 X1000 (0.0-0.2); BASO% 0.4 % (0.0-0.8); EOS# 0.17 X1000 (0.0-0.7); EOS% 1.7 % (0.0-10.0); HEMATOCRIT 42.8 % (42.0-52.0); HEMOGLOBIN 14.2 g/dL (14.0-18.0); LYMPH% 20.5 % (20.5-51.1); MCHC 33.2 g/dL (33-37); MCV 90.3 FL (81-99); MONO# 0.58 X1000 (0.11-0.59); MONO% 5.9 % (1.7-9.3); MPV 12.4 FL (7.4-10.4); NEUT# 6.97 X1000 (1.4-6.5); NEUT% 71.5 % (42.2-75.2); PLT 171 X1000 (130-400); RBC 4.74 XMIL (4.7-6.1); RDW 14.2 % (11.5-14.5); WBC 9.76 X1000 (4.8-10.8)
[2019-09-01] MEDS ORDERED: ATIVAN IM ONE (22:16)
[2019-09-01] MEDS ORDERED: ATIVAN ONE (22:22)
--- NOTE | 2019-09-01 22:26 | PROVIDER DOCUMENTATION ---
This chart was entered by Isabella Pagan Scribe, acting as scribe for Willie Lagos MD. HPI-Neurological Disorder - General Chief Complaint: Seizure Stated Complaint: seizure Time Seen by Provider: 09/01/19 21:38 Source: family Allergies/Adverse Reactions: Patient Allergies Allergy/AdvReac Type Severity Reaction Status Date / Time No Known Allergies Allergy Verified 09/01/19 22:37 Home Medications: Home Medication List Medication Instructions Recorded Confirmed Last Taken Type Amlodipine [Norvasc] 10 mg PO DAILY tab 12/29/18 Unknown Rx LISINOpril [Prinivil] 40 mg PO DAILY tab 12/29/18 Unknown Rx Lamotrigine [Lamictal] 100 mg PO BID tab 12/29/18 Unknown Rx Acetaminophen [Tylenol] 650 mg PEG PRN PRN 09/01/19 09/01/19 Unknown History Amantadine HCl [Amantadine] 100 mg PEG BID 09/01/19 09/01/19 Unknown History Carvedilol [Coreg] 25 mg PEG BID 09/01/19 09/01/19 Unknown History Enoxaparin [Lovenox] 40 mg SUBQ DAILY 09/01/19 09/01/19 Unknown History Ergocalciferol (Vitamin D2) 50,000 units PEG DIRECTED 09/01/19 09/01/19 Unknown History [Vitamin D] Esomeprazole [Nexium] 40 mg PEG DAILY 09/01/19 09/01/19 Unknown History Phenytoin Sodium Extended 300 mg PEG QHS 09/01/19 09/01/19 Unknown History Thiamine [Vitamin B-1] 100 mg PEG DAILY 09/01/19 09/01/19 Unknown History - History of Present Illness-Neuro Nature of Presenting Problem: pt is a 73 yr old male presenting via EMS with report of seizures, family reports pt had 1 seizure yesterday and another on this evening, this evening pt seized for 3-4 minutes and was incontinent, no injury associated. pt hx of seizures and is noncompliant with medications, pt caregiver is his 82yr old brother. pt admits headache last night but none today Severity: reports: moderate Onset/Duration: reports: 24 hours ago Timing: reports: intermittent Context: reports: seizure activity Character of Altered Mental Status: reports: seizure activity Any recent trauma/injury?: reports: none New weakness or altered sensation location:: reports: none Cognitive Baseline: alert, oriented x3 Associated Symptoms: reports: headache, seizures Similar Symptoms Previously?: Yes Recently seen or treated by another doctor?: No - Seizure First time to have a seizure?: No Witnessed seizure?: Yes How many seizure episodes?: 2 Duration of episode? (mins): 4 Episode Frequency: occasional episodes Status Epilepticus: No Preceding symptoms/context:: missed recent doses of seizure meds (pt noncompliant with medications) Character of Seizure: reports: generalized shaking all over Post-ictal Symptoms: reports: confusion Seizure related injury: none Review of Systems - Adult - REVIEW OF SYSTEMS - ADULT Constitutional: denies: fever, fatique Eyes: reports: no symptoms reported Ears, Nose, Mouth & Throat: reports: no symptoms reported Cardiovascular: reports: no symptoms reported Respiratory: reports: no symptoms reported Gastrointestinal: denies: abdominal pain, nausea, vomiting Genitourinary: reports: incontinence Musculoskeletal: denies: back pain, joint pain, neck pain Integumentary: reports: no symptoms reported Neurological: reports: headache/migraines, seizure Psychiatric: reports: no symptoms reported Endocrine: reports: no symptoms reported Hematologic/Lymphatic: reports: no symptoms reported Allergic/Immunologic: reports: no symptoms reported All Other Systems: Reviewed and Negative Past History - Adult - PAST MEDICAL HISTORY-ADULT Review of Records: reports: Nursing Assessment Review, Medications Reviewed, Social history reviewed & non-contributory. Major Childhood Illnesses: reports: denies history Cardiovascular: reports: denies history Respiratory: reports: denies history Gastrointestinal: reports: denies history Obstetrical/Gynecological: reports: denies history Genitourinary: reports: denies history Musculoskeletal: reports: denies history Neurological: reports: denies history Endocrine/Immune: reports: denies history Other Conditions: reports: denies history - IMMUNIZATION STATUS Childhood Immunizations: See Nurse Assessment Flu Vaccine: See Nurse Assessment - FAMILY HISTORY Family History: reviewed, not pertinent - SOCIAL HISTORY Living Situation: family Physical Exam- Neurological - Physical Exam-Neuro Initial Vital Signs Reviewed: Yes General Appearance: alert, no apparent distress Eye Exam: bilateral eye: normal inspection, PERRL HENMT: normocephalic/atraumatic, moist mucous membranes Head Injury: no evidence of injury Neck: non-tender, full range of motion, supple, normal inspection Respiratory: chest non-tender, lungs clear, normal breath sounds Cardiovascular: normal peripheral pulses, regular rate, rhythm, no edema Abdominal Exam: normal bowel sounds, non tender, soft Lymphatic: no adenopathy Extremity: normal range of motion, non-tender, normal inspection bridge ironworker Exam: PERRL Motor/Sensory: no motor deficit, weak motor strength LUE, weak motor strength LLE Neurologic: other (left sided weakness) Integumentary: normal color, normal turgor, warm/dry Psych/Mental Status: normal mood/affect, disheveled - Glascow Coma Scale Best Eye Response: (4) open spontaneously Best Verbal Response: (5) oriented Best Motor Response: (6) obeys commands Total Glascow Score: 15 Progress - PLAN OF CARE/RESULTS Progress/Plan/Lab Results: Vital Signs - 8 hr 09/01/19 22:18 Temperature 99.2 F Pulse Rate 66 Respiratory Rate 21 Blood Pressure 220/127 O2 Sat by Pulse Oximetry 92 L Laboratory Results - last 24 hr 09/01/19 09/01/19 09/01/19 21:50 21:50 21:50 WBC 9.76 RBC 4.74 Hgb 14.2 Hct 42.8 MCV 90.3 MCH 30.0 MCHC 33.2 RDW Std Deviation 14.2 Plt Count 171 MPV 12.4 H Neut % (Auto) 71.5 Lymph % (Auto) 20.5 Coffee % (Auto) 5.9 Eos % (Auto) 1.7 Baso % (Auto) 0.4 Neut # (Auto) 6.97 H Lymph # (Auto) 2.00 Coffee # (Auto) 0.58 Eos # (Auto) 0.17 Baso # (Auto) 0.04 Sodium 141 Potassium 3.7 Chloride 103 Carbon Dioxide 24 L Anion Gap 14 BUN 15 Creatinine 0.9 Estimated GFR/1.73 m2 > 60 BUN/Creatinine Ratio 17 Glucose 146 H Calculated Osmolality 285 Calcium 9.6 Total Bilirubin 0.34 AST 13 ALT 9 L Alkaline Phosphatase 154 H Troponin T High Sens 20 H Total Protein 6.8 Albumin 4.4 Globulin 2.4 Albumin/Globulin Ratio 1.8 Orders Category Date Time Status FSBS/Accucheck Result NOW Care 09/01/19 21:39 Active Seizure Precautions ROUTINE Care 09/01/19 21:[address] HEAD W/O CONTRAST [CT] Stat Exams 09/01/19 21:40 Taken CBC WITH ELECTRONIC DIFF [HEME] Stat Lab 09/01/19 21:50 Completed CMP [COMPREHENSIVE METABOLIC PANEL] [CHEM] Stat Lab 09/01/19 21:50 Completed TROPONIN T HIGH SENSITIVITY Stat Lab 09/01/19 21:50 Completed Clonidine [Catapres] Med 09/01/19 23:20 Once 0.2 mg PO NOW ONE Levetiracetam [Keppra] 1,000 mg Med 09/01/19 21:38 Discontinued 0.9% Sodium Chloride Inj [Ns] 100 ml IV NOW Lorazepam [Ativan] Med 09/01/19 22:16 Discontinued 1 mg IM NOW ONE Lorazepam [Ativan] Med 09/01/19 22:22 Discontinued 2 mg .ROUTE .STK-MED ONE Olanzapine [Zyprexa] Med 09/01/19 22:53 Discontinued 10 mg IM NOW ONE Oxygen Device Stat Oth 09/01/19 21:41 Completed EKG [EKG] Stat Ther 09/01/19 21:41 Ordered Result Diagrams: 09/01/19 21:50 09/01/19 21:50 - CONSULTS/PCP/HOSPITALIST Notification #1 *Consult/PCP/Hospitalist*: Dr. Nur, hospitalist Time Discussed: 23:15 Consult Disposition: Admit Departure - Departure Date of Disposition Decision: 09/01/19 Time of Disposition Decision: 23:21 DIAGNOSIS: Uncontrolled hypertension Uncontrolled seizures Qualifiers: Convulsion type: unspecified Qualified Code(s): R56.9 - Unspecified convulsions Altered mental state Qualifiers: Altered mental status type: unspecified Qualified Code(s): R41.82 - Altered mental status, unspecified Disposition: ADMITTED INPATIENT 09 Certified Medical Emergency: Emergent Condition: Stable Referrals and Follow-Ups: None,PCP [Primary Care Provider] - - Critical Care Note This patient required my direct & personal management of CC.: No Attestation - Physician/ EMILIE Attestation Patient care was provided by Advanced Practice Provider:: No The physician spent face to face time with patient:: Yes Advanced Practice Provider documentation review:: Supervising physician onsite and consulted in the evaluation and care of this patient. The physician did have a face to face encounter with the patient. - NIH Stroke Scale Level of Consciousness: 1-Drowsy, but arousable with minimal stimulation LOC Questions (ask month and age): 0-Answers Both Correctly Best Gaze (horizontal eye movement): 0-Normal Visual (use finger movement, counting or visual threat): 0-No Visual Loss Motor Function-left arm: 2-Some Effort Against [place] Motor Function-right arm: 0-Normal Motor Function-left le-Some Effort Against [place] Motor Function-right le-Normal NIH Total Score: 4 This chart was documented by the indicated scribe, (Isabella Pagan, Scribe) and accurately reflects the services I performed and decisions made by me, Willie Lagos MD, as attested by the provider's signature.
[2019-09-01 22:41] LABS: AGAP 14; ALB/GLOB RATIO 1.8; ALBUMIN 4.4 g/dL (3.5-5.0); ALKALINE PHOSPHATASE 154 U/L (32-122); BUN 15 mg/dL (8-22); CALCIUM 9.6 mg/dL (8.8-10.2); CHLORIDE 103 mmol/L (98-107); COSMO 285; CREATININE 0.9 mg/dL (0.7-1.2); ESTIMATED GFR > 60; GLUCOSE 146 mg/dL (70-104); GOT 13 U/L (10-34); GPT 9 U/L (10-44); POTASSIUM 3.7 mmol/L (3.5-5.1); SODIUM 141 mmol/L (136-145); TCO2 24 mmol/L (25-35); TOTAL BILIRUBIN 0.34 mg/dL (0.20-1.00); TOTAL PROTEIN 6.8 g/dL (6.3-8.3)
[2019-09-01] MEDS ORDERED: ZYPREXA IM ONE (22:53)
[2019-09-01] MEDS ORDERED: CATAPRES PO ONE (23:20)
[2019-09-02] MEDS ORDERED: GEODON IM ONE (00:38)
[2019-09-02] MEDS ORDERED: STERILE WATER INJ. INJ ONE (00:38)
[2019-09-02] MEDS ORDERED: STERILE WATER INJ. ONE (00:43)
[2019-09-02] MEDS ORDERED: GEODON ONE (00:43)
--- NOTE | 2019-09-02 01:24 | HISTORY AND PHYSICAL ---
PRIMARY CARE PHYSICIAN: Unknown. CHIEF COMPLAINT: Seizures. HISTORY OF PRESENTING ILLNESS: A 73-year-old male with a history of hypertension, seizure disorder, GERD, CVA, who had presented to the emergency department due to the patient having several seizures. The patient is moderately confused, not much information could be obtained from the patient, there is no family around. The patient also was moderately agitated. He was seen in the ED and due to his presenting condition he will need admission for further management. PAST MEDICAL HISTORY: Includes hypertension, seizure disorder, GERD, CVA. PAST SURGICAL HISTORY: Craniotomy. ALLERGIES: No known drug allergies. CURRENT MEDICATIONS: Amantadine 100 mg via PEG daily, Norvasc 10 mg via PEG daily, Coreg 25 mg via PEG b.i.d., Lovenox 40 mg subcutaneous daily, Nexium 40 mg via PEG daily, Lamictal 100 mg via PEG daily, lisinopril 40 mg via PEG daily, phenytoin 300 mg via PEG at bedtime, thiamine 100 mg via PEG daily. SOCIAL HISTORY: No history of smoking, alcohol or illicit drug use.Family History: No history of coronary disease. REVIEW OF SYSTEMS: Unable to obtain due to the patient being confused. PHYSICAL EXAMINATION: GENERAL: The patient is moderately confused and agitated. VITAL SIGNS: Temperature 99.2 degrees, pulse 66, respirations 21, blood pressure 220/127. HEENT: Atraumatic, normocephalic. PERRLA. NECK: No masses. CHEST: Clear to auscultation. CARDIOVASCULAR: Regular rate and rhythm. ABDOMEN: Soft. Positive bowel sounds. EXTREMITIES: No edema. NEUROLOGIC: He is alert and agitated, moderately confused. GENITOURINARY: No bladder distention. SKIN: Warm. LABORATORIES AND STUDIES: Sodium 141, potassium 3.7, chloride 103, CO2 is 24, BUN is 15, creatinine 0.9 glucose 146. WBC is 9.76, hemoglobin is 14.2, hematocrit 42.8, platelets 171,000. ASSESSMENT: A 73-year-old male with a history of hypertension, seizure, CVA, and GERD who had presented to the emergency department with several days history of having seizures. He was seen in the ED, he was moderately confused and agitated due to his presenting symptoms. He will require admission for further management. 1. Altered mental status. 2. Seizures. 3. Hypertension. 4. Gastroesophageal reflux disease. PLAN: 1. We will admit the patient to [facility]. 2. Continue to do neurologic checks. 3. Put the patient on seizure precautions. 4. The patient was started on Keppra and will continue his phenytoin. 5. We will consult Neurology. 6. We will monitor blood pressure closely. 7. Resume antihypertensive agent. 8. Restart other home medications. 9. The patient on Lovenox already and this will suffice for DVT prophylaxis. 10. We will continue to follow, reassess and make further recommendation based on the patient's clinical course. cc: Carlos Nur MD
[2019-09-02] MEDS ORDERED: TYLENOL PEG PRN (01:33)
[2019-09-02] MEDS ORDERED: ZOFRAN IV PRN (01:33)
[2019-09-02] MEDS ORDERED: TYLENOL PO PRN (01:42)
[2019-09-02] MEDS: APRESOLINE IV PRN (05:02)
--- NOTE | 2019-09-02 07:56 | Diag Imaging Result Doc PS360 ---
EXAM: CT HEAD W/O CONTRAST 09/01/2019 HISTORY: seizure TECHNIQUE: This exam was performed using automated exposure control, adjustment of mA or kV according to patient size, and/or use of iterative reconstruction technique. COMMENT: The current study is compared with 12/22/2018. There has been previous right temporal craniotomy and there is encephalomalacia in the right temporal lobe which was also the case previously. There is ventriculomegaly particularly in the temporal horn on the right which is presumably at least in part due to ex vacuo change. There is some encephalomalacia in the posterior internal capsule and adjacent thalamus on the right. There are patchy lucencies in the white matter of both hemispheres generally. This was also the case previously. Overall the appearance the brain has not changed significantly since the previous study. The visualized paranasal sinuses are clear. 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 Electronically signed by Layton Maloney 09/02/2019 7:54 AM
[2019-09-02] MEDS ORDERED: VITAMIN B-1 PEG SCH (09:00)
[2019-09-02] MEDS ORDERED: SYMMETREL SCH (09:00)
[2019-09-02] MEDS ORDERED: PRILOSEC PEG SCH (09:00)
[2019-09-02] MEDS ORDERED: COREG PEG SCH (09:00)
[2019-09-02] MEDS: VITAMIN B-1 PO SCH (10:33)
[2019-09-02] MEDS: COREG PO SCH ×2 (10:33→22:35)
[2019-09-02] MEDS: KEPPRA 1,000 MG in NS 100 ML IV SCH ×2 (10:33→20:40)
[2019-09-02] MEDS: PRILOSEC PO SCH (10:33)
[2019-09-02] MEDS: SYMMETREL PO SCH ×2 (10:33→22:35)
[2019-09-02] MEDS ORDERED: ATIVAN IV ONE (12:24)
--- NOTE | 2019-09-02 13:18 | Diag Imaging Result Doc PS360 ---
MRI BRAIN W/WO CONTRAST - 09/02/2019 INDICATION: recurrent seizures. COMPARISON: Head CT 09/01/2019 FINDINGS: There is significant diffuse cerebral atrophy. There are changes of previous right craniectomy. There is an area of encephalomalacia at the lateral right cerebral hemisphere with some surrounding gliosis. There is indeed severe cerebral white matter chronic microvascular ischemia diffusely. This also affects the lakesha. No intracranial mass or hemorrhage. Midline structures including optic chiasm and pituitary are grossly normal. IMPRESSION: Significant chronic changes. No acute process. Electronically signed by Augustine Gutierrez 09/02/2019 1:16 PM
--- NOTE | 2019-09-02 14:24 | NEUROLOGY CONSULTATION ---
DATE: 09/02/2019 HISTORY: Mr. Vides is 73 years old. 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 He has had stable left hemiparesis. He has had documented very good seizure control when he is compliant with his medicines. Brother at the bedside reports patient had no seizures for several months. He stopped taking his medicine and had a seizure about a week ago and then a seizure each day for 2 or 3 days prior to admission. Brother reports patient has not had problems tolerating his seizure medications. I saw Mr. Vides 8 months ago. History was similar then. He was discharged on lamotrigine 100 mg b.i.d. He presents this time with report that medicines include lamotrigine 100 mg b.i.d. and also phenytoin 300 mg daily. Brother at the bedside reports patient has had some forgetfulness. There is clear history of hallucination, which is not directly associated with seizure. There may also be some depression. Brother reports patient was aggressive with rehab following his initial neurologic event, but seems less interested in his physical therapy in recent months. There is not history of recent ethanol use, illicit drug use, drug intoxication. Workup this admission includes lab showing phenytoin level 0.9, consistent with brother's report that patient had stopped taking his medicine. Chemistry shows mildly elevated blood sugars and nothing that generally would be associated with seizure or encephalopathy. He has been afebrile. Systolic blood pressure was recorded 220 initially, 120s-150s this morning. 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 He has stable baseline left hemiparesis. I have asked patient and family members before and again today and I do not have clear history that the left hemiparesis is transiently more prominent following his seizure episodes. Still, seems almost certain that the prior right hemisphere structural lesion is the seizure focus. We have a clear history that seizure control has been good when he is compliant with his recommended medicines. There is also history that he has not had problems tolerating the medicines, but that he has simply decided not to take them. In light of report of likely cognitive impairment, I think it is reasonable to continue to provide the medicine doses. We can check lamotrigine and phenytoin levels on current doses electively when they are at steady state. Eventually, we might see control with monotherapy rather than continuing 2 drugs at relatively low dose. Eventually, cholinesterase inhibitor trial might be considered. If hallucinations become prominent, low-dose neuroleptic medicine might be considered. I have offered to see Mr. Vides in my office. Brother is aware of that option. Mr. Vides had appointment to see me a few months ago, but did not keep the appointment. Thanks for asking Neurology to see Mr. Vides. cc: MD CEASAR Ham III
[2019-09-02] MEDS: LOVENOX SUBQ SCH (20:40)
[2019-09-02] MEDS ORDERED: PHENYTOIN SODIUM 300 MG PEG SCH (21:00)
[2019-09-02] MEDS ORDERED: DILANTIN PO SCH (21:00)
[2019-09-03] MEDS: PRILOSEC PO SCH (06:05)
[2019-09-03 06:11] LABS: BASO# 0.05 X1000 (0.0-0.2); BASO% 0.5 % (0.0-0.8); EOS# 0.14 X1000 (0.0-0.7); EOS% 1.4 % (0.0-10.0); HEMATOCRIT 43.8 % (42.0-52.0); HEMOGLOBIN 14.3 g/dL (14.0-18.0); IMM GRAN# 0.02 X1000 (0.0-0.04); IMM GRAN% 0.2 % (0.0-0.5); LYMPH# 1.47 X1000 (1.2-3.4); LYMPH% 14.5 % (20.5-51.1); MCH 29.7 PG (27-31); MCHC 32.6 g/dL (33-37); MCV 91.1 FL (81-99); MONO# 0.67 X1000 (0.11-0.59); MONO% 6.6 % (1.7-9.3); MPV 12.4 FL (7.4-10.4); NEUT# 7.82 X1000 (1.4-6.5); NEUT% 76.8 % (42.2-75.2); PLT 164 X1000 (130-400); RBC 4.81 XMIL (4.7-6.1); RDW 14.3 % (11.5-14.5); WBC 10.17 X1000 (4.8-10.8)
[2019-09-03 06:41] LABS: AGAP 14; BUN 10 mg/dL (8-22); CALCIUM 9.3 mg/dL (8.8-10.2); CHLORIDE 104 mmol/L (98-107); COSMO 279; CREATININE 0.9 mg/dL (0.7-1.2); ESTIMATED GFR > 60; GLUCOSE 104 mg/dL (70-104); POTASSIUM 3.4 mmol/L (3.5-5.1); SODIUM 140 mmol/L (136-145); TCO2 22 mmol/L (25-35)
--- NOTE | 2019-09-03 07:23 | PROGRESS NOTE ---
DATE: 09/03/2019 SUBJECTIVE: Upon my examination this morning, patient has been confused. He mumbles some unintelligible words. Denies any headache. According to nursing staff, he has been restless most of the night. OBJECTIVE: Vital Signs: Temperature 97.6 degrees, heart rate 93, respiratory rate 22, blood pressure 186/172, O2 saturation 98% on room air. General examination: This is a 73-year-old, male, lying in bed in no acute distress. Cardiovascular exam: S1, S2 heard. No murmurs, gallops, or rubs. Regular rate and rhythm. Respiratory exam: Clear bilaterally to auscultation. No work of breathing or using accessory muscles. Abdomen: Soft, nontender to palpation. Bowel sounds present. No organomegaly. Extremities: No clubbing, cyanosis, or edema. Peripheral pulses present in both legs. Neurological exam: Patient is confused. Does answer a very few basic commands. There is left hemiparesis noted. LABORATORY DATA: White cell count 10.7, hemoglobin 14.3, hematocrit 43.8, platelets 164 with BMP remarkable for potassium 3.4. ASSESSMENT AND PLAN: 1. Chronic seizures. Patient has been admitted to the hospital because of many episodes of seizures. We have ordered an MRI of the brain, which basically showed chronic changes, but no acute process. We have called Neurology, who is following this patient. At this point, patient is still confused, not able to take any medications by mouth. So, at this point, we will switch to Lamictal by mouth. We will plan to increase the doses. I will stop phenytoin. I think it will be much better for this patient to have monotherapy instead of medications with lower doses. 2. Hypertension. We have restarted amlodipine on this patient. and monitor blood pressure closely. 3. Gastroesophageal reflux disease. We will continue with Protonix. 4. Disposition: We continue to monitor this patient closely. Once he is more awake and alert, we will consult physical therapy, occupational therapy, and see if this patient decided to go to rehabilitation facility or not. cc: MD CEASAR Urbina
[2019-09-03] MEDS ORDERED: VITAMIN D PEG SCH (09:00)
[2019-09-03] MEDS: COREG PO SCH ×3 (10:16→20:49)
[2019-09-03] MEDS: SYMMETREL PO SCH ×2 (10:17→20:44)
[2019-09-03] MEDS: VITAMIN B-1 PO SCH (10:17)
[2019-09-03] MEDS: LOVENOX SUBQ SCH (10:22)
[2019-09-03] MEDS: KEPPRA 1,000 MG in NS 100 ML IV SCH ×2 (10:23→20:44)
[2019-09-03] MEDS: VITAMIN D PO SCH (10:23)
--- NOTE | 2019-09-03 10:24 | NEUROLOGY PROGRESS NOTE ---
DATE: 09/03/2019 LOCATION: Room 214. SUBJECTIVE: Mr. Vides has not had clinically recognized seizure in the last 24 hours. He seems to be tolerating management with levetiracetam 1000 mg every 12 hours (normal creatinine), discontinued phenytoin, p.r.n. lorazepam with no doses required. On exam, he is awake, alert, attentive. His left hemiparesis appears to be at baseline. I do not have any urgent suggestion. When he can swallow consistently, we can resume lamotrigine. I will be glad to see him as an outpatient. Thank you for asking Neurology to see Mr. Vides. cc: Aiden Roper III, MD
[2019-09-03] MEDS: ATIVAN IV PRN (21:48)
[2019-09-04] MEDS: ATIVAN IV PRN (02:57)
[2019-09-04] MEDS: PRILOSEC PO SCH (06:09)
[2019-09-04] MEDS ORDERED: BENADRYL IV PRN (06:43)
--- NOTE | 2019-09-04 07:50 | PROGRESS NOTE ---
DATE: 09/04/2019 SUBJECTIVE: Upon my examination this morning, the patient has been lethargic. According to nursing staff, he has received 2 times doses of Ativan because he has been very restless and confused. He mumbled some unintelligible words. OBJECTIVE: Vital Signs: Temperature 98.8, heart rate 92, respiratory rate 18, blood pressure 118/84, O2 saturation 97% on room air. General: This is a chronically ill-appearing, 73-year-old male, lying in bed, in no acute distress. Cardiovascular: S1, S2 heard. No murmurs, gallops, or rubs. Regular rate and rhythm. Respiratory: Clear bilaterally to auscultation. No work of breathing or using accessory muscles. Abdomen: Soft, nontender to palpation. Bowel sounds present. No organomegaly. Extremities: No clubbing, cyanosis or edema. Peripheral pulses present. Neurological: Patient is lethargic, does not follow commands. LABORATORY DATA: Pending at the time of my dictation. ASSESSMENT AND PLAN: 1. Chronic seizures. The patient has been admitted to the hospital because of recurrent seizures. I have talked with his brother who is his main healthcare representative, and he reports that this patient was having some episodes of hallucinations and confusion at home. He many times refused to have his seizure medications. I think this patient has been noncompliant. Neurology has evaluated this patient. No new recommendations from their standpoint. At this point, this is a case of noncompliance, so currently because he is confused and not able to take anything by mouth, we have placed him on Keppra and will switch to his home medications, in this case Lamictal, once he is able to take medications by mouth. 2. Possible dementia. The patient was having visual and auditory hallucinations sometimes. At this point, I think we are going to place him on Haldol at night and also daytime. We will continue to monitor. 3. Gastroesophageal reflux disease. We will continue with Protonix. 4. Disposition. At this point, plan is to send him home with home health once he is more alert and awake. At this point, we will continue to monitor this patient closely. cc: Kashmir Holden MD
[2019-09-04] MEDS: VITAMIN B-1 PO SCH (08:31)
[2019-09-04] MEDS: COREG PO SCH ×2 (08:31→22:24)
[2019-09-04] MEDS: SYMMETREL PO SCH ×2 (08:31→23:03)
[2019-09-04] MEDS: KEPPRA 1,000 MG in NS 100 ML IV SCH ×2 (08:32→23:16)
[2019-09-04] MEDS: HALDOL IV SCH ×2 (08:33→23:03)
[2019-09-04] MEDS: LOVENOX SUBQ SCH (08:33)
--- NOTE | 2019-09-04 10:28 | Diag Imaging Result Doc PS360 ---
EXAM: CHEST-PORTABLE HISTORY: Rehab placement TECHNIQUE: Single view COMPARISON: 12/27/2018 FINDINGS: Poor inspiratory effort. The patient is rotated to the left.. The heart is not enlarged. The vessels are not distended. There are no infiltrates. No effusion identified. IMPRESSION: Negative exam. Electronically signed by Sergo Nina 09/04/2019 10:26 AM
--- NOTE | 2019-09-04 13:44 | NEUROLOGY PROGRESS NOTE ---
DATE: 09/04/2019 SUBJECTIVE: Mr. Vides has not had clinically recognized seizure. He seems to be tolerating current management. I agree with Dr. Gandara's plans to continue levetiracetam IV while Mr. Vides is not swallowing consistently. We will tentatively plan to return to lamotrigine p.o. later. Also agree with adding haloperidol for control of psychosis while hospitalized. Eventually, cholinesterase inhibitor might be considered. No new suggestions from Neurology standpoint today. Thanks for asking us to see Mr. Vides. cc: MD CEASAR Ham III
[2019-09-04] MEDS ORDERED: OFIRMEV 1000 MG/ISOTONIC SOLN 1,000 MG/100 ML BOTTLE IV PRN (16:26)
--- NOTE | 2019-09-04 16:46 | Diag Imaging Result Doc PS360 ---
CHEST-PORTABLE - 09/04/2019 4:34 PM INDICATION: md ordered COMPARISON: 10:03 AM FINDINGS: Lung volumes are moderately low. There is some stable hazy atelectasis or infiltrate in the left lung base. Heart size remains normal. No pneumothorax or pleural effusion. IMPRESSION: Nonspecific findings. No change from prior. Electronically signed by Augustine Gutierrez 09/04/2019 4:43 PM
[2019-09-04] MEDS: ZOSYN 3.375 GM in NS 50 ML IV SCH ×2 (17:22→23:16)
[2019-09-05] MEDS: ATIVAN IV PRN (01:42)
[2019-09-05] MEDS: ZOSYN 3.375 GM in NS 50 ML IV SCH ×4 (03:53→22:06)
[2019-09-05] MEDS: PRILOSEC PO SCH (06:03)
--- NOTE | 2019-09-05 06:57 | PROGRESS NOTE ---
DATE: 09/05/2019 SUBJECTIVE: Patient continued to be lethargic; apparently he has being restless. Around 1 p.m. he did not receive any Haldol. At bedtime, he received 1 dose of vitamin overnight, and since then he has been more sleepy and lethargic. According to nursing staff, he has been more alert and awake at the beginning of soft work wrapper examiner. OBJECTIVE: Vital Signs: Temperature 97.8 degrees, heart rate 87, respiratory rate 20, blood pressure 125/92, O2 saturation 98% on room air. Skin examination: This is a chronically ill- appearing, 73-year-old male, lying in bed in no acute distress. Cardiovascular exam: S1, S2 heard. No murmurs, gallops, or rubs. Regular rate and rhythm. Respiratory exam: Minimal coarse breath sounds noted in both pulmonary bases. Patient not using any accessory muscles or having work of breathing. Abdomen: Soft. Nontender to palpation. Bowel sounds present. No organomegaly. Extremities: No clubbing, cyanosis, or edema. Peripheral pulses present in both legs. Neurological exam: This patient is lethargic. Does not follow commands. LABORATORY DATA: Pending at the time of dictation. ASSESSMENT AND PLAN: 1. Chronic seizures. No more episodes of seizures seen here. The patient is being followed by Neurology. At this time because he is not able to take anything by mouth, we will continue with Keppra intravenous and will stop that and change to Lamictal once he is more awake and alert. His recurrent seizures are most likely related to history of noncompliance, so at this point we will continue to monitor. 2. Possible dementia. The patient has been started on Haldol twice daily. We will continue to monitor. 3. Possible aspiration pneumonia. Patient started spiking fevers, and even though there is no elevation in the white cell count, we decided to start antibiotics, in this case Zosyn. At this point, white cell count is normal. So, we will continue to monitor this patient closely. 4. Gastroesophageal reflux disease. We will continue Protonix. 5. Disposition: At this point, we are waiting for this patient to be more calmed down. Will need social services director to arrange home health--that is going to be on Saturday. 6. . cc: Kashmir Holden MD
[2019-09-05] MEDS: LOVENOX SUBQ SCH (08:44)
[2019-09-05] MEDS: HALDOL IV SCH ×2 (08:44→22:06)
[2019-09-05] MEDS: KEPPRA 1,000 MG in NS 100 ML IV SCH ×2 (08:46→22:06)
[2019-09-05] MEDS: SYMMETREL PO SCH ×2 (08:47→22:23)
[2019-09-05] MEDS: VITAMIN B-1 PO SCH (08:47)
[2019-09-05] MEDS: COREG PO SCH ×2 (08:47→22:23)
[2019-09-06] MEDS: ZOSYN 3.375 GM in NS 50 ML IV SCH ×3 (04:09→16:24)
[2019-09-06] MEDS: ATIVAN IV PRN (04:09)
[2019-09-06] MEDS: PRILOSEC PO SCH (06:50)
[2019-09-06] MEDS: LOVENOX SUBQ SCH (08:15)
[2019-09-06] MEDS: HALDOL IV SCH ×2 (08:15→20:02)
--- NOTE | 2019-09-06 08:17 | PROGRESS NOTE ---
DATE: 09/06/2019 SUBJECTIVE: The patient continues to be lethargic. He received 1 dose of Haldol 5 mg IV at 9 p.m. that apparently has lasted until 4 a.m. when he became very restless so he received one dose of Ativan. At the time of my examination this morning, he is very lethargic and does not answer any questions. OBJECTIVE: Vital Signs: Temperature 97.7 degrees, heart rate 86, respiratory rate 18, blood pressure 139/95, O2 saturation 98% on room air. General Examination. This is a chronically ill- looking, 73-year-old, male, lying in bed, in no acute distress. Cardiovascular Examination: S1 and S2 heard. No murmurs, gallops, or rubs. Regular rate and rhythm. Respiratory Examination: Clear bilaterally to auscultation. Minimal coarse breath sounds noted in both bases. Patient is not using any accessory muscles or having work of breathing. Abdomen: Soft. Nontender to palpation. Bowel sounds present. No organomegaly. Extremities: No clubbing, cyanosis, or edema. Peripheral pulses present in both legs. Neurological Examination: The patient is lethargic. Does not follow commands. Laboratory Data: Pending at the time of my dictation. ASSESSMENT AND PLAN: 1. Chronic seizures, definitely related to noncompliance. No more episodes of seizures while this patient is here. Neurology has been following this patient and no more recommendations have been provided. The plan is basically continue with the Keppra intravenously and he is able to take medications by mouth. 2. Possible dementia. Patient continues to be very agitated. I think he may have some degree of dementia so Haldol has been started. We will continue to monitor. 3. Possible aspiration pneumonia. We will continue with Zosyn. 4. Gastroesophageal reflux disease. We will continue with Protonix. 5. Disposition. At this point, we will continue to monitor this patient closely. We will keep this patient in the hospital until he wakes up. When he is more alert and awake, I think he can be discharged. Family (in this case, brother who apparently has power of disability attorney) has mentioned that he does not want to go to a rehab facility. In any case, we will continue to monitor. cc: Kashmir Holden MD [facility]US[facility]issette
[2019-09-06] MEDS: SYMMETREL PO SCH ×2 (08:19→20:02)
[2019-09-06] MEDS: COREG PO SCH ×2 (08:19→20:02)
[2019-09-06] MEDS: VITAMIN B-1 PO SCH (08:19)
[2019-09-06] MEDS: KEPPRA 1,000 MG in NS 100 ML IV SCH ×2 (09:03→22:12)
[2019-09-06] MEDS: LIPOSYN 20% 250 ML IV SCH (12:42)
[2019-09-06] MEDS: CLINIMIX E 4.25%-5% SOLUTION 1,000 ML IV SCH (12:42)
[2019-09-06] MEDS: APRESOLINE IV PRN (16:36)
[2019-09-07] MEDS: ZOSYN 3.375 GM in NS 50 ML IV SCH ×4 (01:27→22:12)
[2019-09-07] MEDS: ATIVAN IV PRN (02:10)
[2019-09-07] MEDS: APRESOLINE IV PRN (02:10)
[2019-09-07] MEDS: CLINIMIX E 4.25%-5% SOLUTION 1,000 ML IV SCH ×2 (02:10→13:59)
[2019-09-07] MEDS: PRILOSEC PO SCH (07:32)
[2019-09-07] MEDS: KEPPRA 1,000 MG in NS 100 ML IV SCH ×2 (09:21→22:11)
[2019-09-07] MEDS: LOVENOX SUBQ SCH (09:21)
[2019-09-07] MEDS: HALDOL IV SCH (09:26)
[2019-09-07] MEDS: COREG PO SCH ×2 (09:54→22:14)
[2019-09-07] MEDS: VITAMIN B-1 PO SCH (09:55)
[2019-09-07] MEDS: SYMMETREL PO SCH ×2 (09:56→22:14)
--- NOTE | 2019-09-07 11:03 | Diag Imaging Result Doc PS360 ---
EXAM: CHEST-1 VIEW HISTORY: per bundle order TECHNIQUE: Single view. COMPARISON: 09/04/2019 FINDINGS: Heart size is within normal limits. Lung volumes are reduced with crowding of the basilar bronchovascular structures. Mild left basilar atelectasis is unchanged. The pulmonary vasculature is not congested. No effusion, or pneumothorax is appreciated. IMPRESSION: Reduced lung volumes. Stable mild left basilar atelectasis. Electronically signed by Micaela Aguilar 09/07/2019 11:00 AM
--- NOTE | 2019-09-07 11:39 | PROGRESS NOTE ---
DATE: 09/07/2019 SUBJECTIVE: I have seen and examined Mr. Vides today. Mr. Vides is very obtunded. He is not able to give any interval history. He only mumbles some non comprehensive words. OBJECTIVE: Vital signs: Blood pressure is 190/92, pulse of 102, respiration is 22, temperature is 97.5 degrees. General exam: Mr. Vides is a 73-year-old looking gentleman. He is in bed in no distress. HEENT: Mucosa is pink and moist. Anicteric. Acyanotic. Neck: Supple. Chest: Air entry is bilaterally reduced. There are no crackles. Cardiovascular: Regular rate and rhythm. No murmurs, no rubs, no gallops. GI/Abdomen: Soft. Bowel sounds present. Extremities: No pedal edema. HEALTH AND SAFETY DIRECTOR: Patient is lethargic, will barely open his eyes. He will move very actively his right side, not so the left side. The face seems to be slightly deviated to the right side. LABORATORY DATA: None for today. PATIENT MEDICATIONS: Have all been reviewed. No changes. ASSESSMENT: 1. Breakthrough seizures, likely due to noncompliance. 2. 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 3. Possible aspiration pneumonitis. Patient is on antimicrobial coverage. 4. Delirium with baseline dementia. PLAN: For now, we are going to continue with current medications. Neurology is on board. We will try to limit the use of psychotropic, as well as benzodiazepine to see if his mentation is going to improve. cc: Danial Doss MD
--- NOTE | 2019-09-07 12:07 | NEUROLOGY PROGRESS NOTE ---
DATE: 09/07/2019 Mr. Vides has not had clinically recognized seizure. He continues levetiracetam 1000 mg q.12 hours. He has had lorazepam 1 mg p.r.n., averaging 1 dose daily, and haloperidol 5 mg at bedtime and 1 mg q.a.m. Attentive brother at the bedside reports restlessness and trouble sleeping. That has been a problem at home. Brother reports patient has a "bad mood" when he does not sleep well at night. Brother again reports history of hallucinations and delusions, and definite cognitive impairment prior to admission. On exam now, Mr. Vides is obtunded. His left hemiparesis continues to be at baseline. There is no definite new neurologic deficit apparent on limited exam today. No urgent suggestions. I would continue levetiracetam and when he is alert and swallowing consistently, we can consider resuming his preadmission seizure medication regimen. Again, cholinesterase inhibitor trial can be considered electively. He appears obtunded today and that may be the effect of haloperidol given last night. I discussed with the brother the likelihood that haloperidol dose sufficient to control nighttime restlessness will often produce daytime somnolence. We can hold his morning haloperidol dose and follow. Thanks for asking neurology to see Mr. Vides. cc: MD CEASAR Ham III
[2019-09-07] MEDS: LIPOSYN 20% 250 ML IV SCH (13:59)
[2019-09-07 14:24] LABS: BASO# 0.03 X1000 (0.0-0.2); BASO% 0.3 % (0.0-0.8); EOS# 0.45 X1000 (0.0-0.7); EOS% 5.2 % (0.0-10.0); HEMATOCRIT 43.4 % (42.0-52.0); IMM GRAN# 0.06 X1000 (0.0-0.04); IMM GRAN% 0.7 % (0.0-0.5); LYMPH# 1.18 X1000 (1.2-3.4); LYMPH% 13.6 % (20.5-51.1); MCH 29.5 PG (27-31); MCHC 32.3 g/dL (33-37); MCV 91.6 FL (81-99); MONO# 0.52 X1000 (0.11-0.59); MPV 12.3 FL (7.4-10.4); NEUT# 6.42 X1000 (1.4-6.5); NEUT% 74.2 % (42.2-75.2); PLT 172 X1000 (130-400); RBC 4.74 XMIL (4.7-6.1); RDW 14.1 % (11.5-14.5); WBC 8.66 X1000 (4.8-10.8)
[2019-09-07 14:48] LABS: INR 1.13; PROTIME 14.7 Seconds (11.0-16.0)
[2019-09-07 14:49] LABS: PTT 47.8 Seconds (22.3-41.8)
[2019-09-07 14:55] LABS: AGAP 13; ALB/GLOB RATIO 1.5; ALBUMIN 3.7 g/dL (3.5-5.0); ALKALINE PHOSPHATASE 99 U/L (32-122); BUN 22 mg/dL (8-22); CALCIUM 9.5 mg/dL (8.8-10.2); CHLORIDE 101 mmol/L (98-107); CK PROFILE 175 U/L (24-204); COSMO 279; CREATININE 0.9 mg/dL (0.7-1.2); ESTIMATED GFR > 60; GLUCOSE 124 mg/dL (70-104); GOT 14 U/L (10-34); GPT 7 U/L (10-44); POTASSIUM 3.3 mmol/L (3.5-5.1); SODIUM 137 mmol/L (136-145); TCO2 23 mmol/L (25-35); TOTAL PROTEIN 6.1 g/dL (6.3-8.3)
[2019-09-08] MEDS: ZOSYN 3.375 GM in NS 50 ML IV SCH ×4 (01:51→20:37)
[2019-09-08] MEDS: CLINIMIX E 4.25%-5% SOLUTION 1,000 ML IV SCH ×2 (03:21→17:06)
[2019-09-08] MEDS: PRILOSEC PO SCH (06:23)
[2019-09-08] MEDS: VITAMIN B-1 PO SCH (08:52)
[2019-09-08] MEDS: SYMMETREL PO SCH ×2 (08:52→20:38)
[2019-09-08] MEDS: COREG PO SCH ×2 (08:53→20:38)
[2019-09-08] MEDS: LOVENOX SUBQ SCH (08:53)
[2019-09-08] MEDS: KEPPRA 1,000 MG in NS 100 ML IV SCH ×2 (08:53→21:38)
[2019-09-08] MEDS: LIPOSYN 20% 250 ML IV SCH (13:17)
--- NOTE | 2019-09-08 13:47 | PROGRESS NOTE ---
DATE: 09/08/2019 SUBJECTIVE: I have seen and examined Mr. Vides today. Mr. Vides refers to be doing well. He looks a little bit more alert today than yesterday. Per the nursing staff, he has been taking his p.o. medications. OBJECTIVE: Vital Signs: Blood pressure is 174/94, pulse of 93, respirations are 18, temperature is 98.1 degrees. General Examination: Mr. Vides is a 73-year-old, gentleman. He is in bed. He is not in any distress. HEENT: Mucosa is pink and moist. Anicteric. Acyanotic. Neck: Supple. Respiratory System: Air entry is bilaterally reduced. There are a few crackles in the posterior lung garcia. Cardiovascular: Regular rate and rhythm. No murmurs, no rubs, no gallops. GI: Abdomen was soft, nontender. Bowel sounds present. INWARD TOLL OPERATOR: The patient is lethargic but more interacting today. He will open his eyes to command. He will also move extremities. He is relatively weaker on the left side. The mouth is also deviated to the right side. Laboratory Data: No laboratory data today. ASSESSMENT: 1. Breakthrough seizures, likely due to noncompliance. The patient has been started on Keppra. Seems to be doing well. Has not had any more seizures during the hospital course. 2. 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 3. Aspiration pneumonitis. Patient is on Zosyn. 4. Delirium with baseline dementia noted. PLAN: I think Mr. Vides is progressively coming around. We have discontinue all the sedatives. We will continue with the Keppra and as his mentation gets better, we will advance his diet as tolerated. cc: Danial Doss MD
[2019-09-08] MEDS: HALDOL IV SCH (15:28)
--- NOTE | 2019-09-08 17:41 | NEUROLOGY PROGRESS NOTE ---
DATE: 09/08/2019 Mr. Vides is sound asleep on my rounds. With moderate stimulation, he grumbled, groaned, turned his head. He did not speak or communicate beyond that. He used his right arm briefly purposefully, but did not follow commands. Left arm shows increased tone and appears to be at baseline. He was noted to be more alert this morning. He has not had seizure recognized here in several days and appears to be tolerating levetiracetam 1000 mg q.12 hours. Creatinine is 0.9, so we would not anticipate toxic level with this dose. I think his somnolence is likely due to multiple factors with significant contribution from his baseline cognitive impairment syndrome. He is receiving amantadine 100 mg b.i.d., levetiracetam as above, haloperidol discontinued yesterday. I do not see anything in the recent chemistry profile that would likely be associated with encephalopathy. He continues afebrile. I do not have any urgent suggestion. I would continue levetiracetam, follow clinically. cc: MD CEASAR Ham III
[2019-09-09] MEDS: ZOSYN 3.375 GM in NS 50 ML IV SCH ×4 (02:06→19:54)
[2019-09-09 04:52] LABS: BILIRUBIN URINE NEGATIVE (NEGATIVE); BLOOD URINE NEGATIVE (NEGATIVE); COLOR YELLOW; GLUCOSE URINE NEGATIVE (NEGATIVE); KETONE URINE NEGATIVE (NEGATIVE); LEUKOCYTES URINE NEGATIVE (NEGATIVE); NITRITE URINE NEGATIVE (NEGATIVE); PH URINE 7.5; PROTEIN URINE TRACE mg/dL (NEGATIVE); SP GRAVITY URINE 1.025; TURBIDITY URINE HAZY (CLEAR); URINE SOURCE CATH; UROBILINOGEN URINE NORMAL (NORMAL)
[2019-09-09 04:53] LABS: UR EPITHELIAL CELLS <10 /HPF (<10); URINE BACTERIA NEGATIVE /HPF; URINE RBC <10 /HPF (<10); URINE WBC <10 /HPF (<10)
[2019-09-09] MEDS: CLINIMIX E 4.25%-5% SOLUTION 1,000 ML IV SCH (06:53)
[2019-09-09] MEDS: PRILOSEC PO SCH (06:54)
[2019-09-09 08:40] LABS: HEMATOCRIT 43.2 % (42.0-52.0); HEMOGLOBIN 13.8 g/dL (14.0-18.0); MCH 29.7 PG (27-31); MCHC 31.9 g/dL (33-37); MCV 93.1 FL (81-99); MPV 12.1 FL (7.4-10.4); RBC 4.64 XMIL (4.7-6.1); RDW 14.1 % (11.5-14.5); WBC 9.01 X1000 (4.8-10.8)
[2019-09-09 09:08] LABS: AGAP 18; BUN 18 mg/dL (8-22); CHLORIDE 105 mmol/L (98-107); COSMO 279; CREATININE 0.9 mg/dL (0.7-1.2); ESTIMATED GFR > 60; GLUCOSE 96 mg/dL (70-104); MAGNESIUM 2.1 mg/dL (1.5-2.7); PHOSPHORUS 2.6 mg/dL (2.7-4.5); SODIUM 139 mmol/L (136-145); TCO2 16 mmol/L (25-35)
--- NOTE | 2019-09-09 12:09 | NEUROLOGY PROGRESS NOTE ---
DATE: 09/09/2019 SUBJECTIVE/OBJECTIVE: Mr. Vides is much more awake this morning. His responses were a little bit slow and speech is a little bit dysarthric, but easily understood. He told me his name. He was not attentive to simple commands. He reports no headache. He has not had seizure recognized in several days here. I do not have any new suggestion. I would continue current management and follow with hope to see continued improved alertness. As previously discussed with brother, elective cholinesterase inhibitor trial could be considered. Thanks for asking Neurology to see Mr. Vides. cc: Aiden Roper III, MD [facility]
[2019-09-09] MEDS: COREG PO SCH ×2 (12:30→19:54)
[2019-09-09] MEDS: LIPOSYN 20% 250 ML IV SCH (12:31)
[2019-09-09] MEDS: LOVENOX SUBQ SCH (12:31)
[2019-09-09] MEDS: SYMMETREL PO SCH ×2 (12:31→19:55)
[2019-09-09] MEDS: VITAMIN B-1 PO SCH (12:31)
[2019-09-09] MEDS: KEPPRA 1,000 MG in NS 100 ML IV SCH (12:34)
--- NOTE | 2019-09-09 16:05 | PROGRESS NOTE ---
DATE: 09/09/2019 SUBJECTIVE: I have seen and examined Mr. Vides today. Mr. Vides refers to be doing fairly okay. He looks more alert and more conversational. I was also able to speak with his brother. OBJECTIVE: Vital signs: Blood pressure is 153/91, pulse of 78, respiration is 18, temperature 98.3 degrees. General: Mr. Vides is a 73-year-old gentleman. He is in bed, no distress. HEENT: Mucosa is pink and moist. Anicteric. Acyanotic. Neck: Supple. Chest: Air entry was bilaterally reduced. A few crackles in the posterior lung garcia. Cardiovascular: Regular rate and rhythm. GI: Abdomen is soft, nontender. Bowel sounds present. PERSONAL COMPUTER NETWORK ANALYST: Patient is awake, oriented to person and to place. He is less lethargic today and interacting. Still has some left-sided weakness. LABORATORY DATA: CBC is unremarkable. Chemistry is also completely within normal range. So far, blood cultures have been 48 hours negative. ASSESSMENT: 1. Breakthrough seizures, likely due to medication noncompliance. Patient is currently on IV Keppra. He seems to be doing well. Has not had any seizures during the hospital course. 2. 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 3. Aspiration pneumonitis. Patient is on Zosyn. Today is day 5. He seems to be clinically getting better. 4. Delirium with baseline dementia. Patient's mentation is improving. He is today more alert, more conversational. 5. Generalized weakness and deconditioning. Physical therapy will be consulted today. 6. Premorbid condition. I understand Mr. Vides will normally needs help to dress himself and will need help for transfers. He will use a front wheel walker every now and then, but most times he is wheelchair or bed-bound. 7. We will get physical therapy to evaluate him and we are also pending possible discharge to a rehab. cc: Danial Doss MD
[2019-09-10] MEDS: KEPPRA 1,000 MG in NS 100 ML IV SCH (00:29)
[2019-09-10] MEDS: SYMMETREL PO SCH ×4 (01:03→21:14)
[2019-09-10] MEDS: COREG PO SCH ×7 (01:03→21:14)
[2019-09-10] MEDS: ZOSYN 3.375 GM in NS 50 ML IV SCH (04:04)
[2019-09-10] MEDS: PRILOSEC PO SCH ×2 (08:44→11:46)
[2019-09-10] MEDS: AUGMENTIN PO SCH ×3 (08:45→21:13)
[2019-09-10] MEDS: NORVASC PO SCH ×2 (08:46→11:47)
[2019-09-10] MEDS: LAMICTAL PO SCH ×2 (08:46→21:14)
[2019-09-10] MEDS: VITAMIN B-1 PO SCH ×2 (08:47→11:47)
[2019-09-10] MEDS: VITAMIN D PO SCH (08:47)
[2019-09-10] MEDS: LOVENOX SUBQ SCH ×2 (09:00→12:00)
--- NOTE | 2019-09-10 15:37 | NEUROLOGY PROGRESS NOTE ---
DATE: 09/10/2019 SUBJECTIVE: Mr. Vides is more alert today than when I saw him yesterday. His speech is less dysarthric. Communication is improved. Left hemiparesis is at baseline. I see that the lamotrigine was given PO this morning and he seems to have tolerated that. He has not had recent seizure. PLAN: I would continue current management. If he continues to swallow well, I do not have any other suggestions. Thanks for asking Neurology to see Mr. Vides. cc: MD CEASAR Ham III
--- NOTE | 2019-09-10 18:30 | PROGRESS NOTE ---
DATE: 09/10/2019 SUBJECTIVE: This morning Mr. Vides refers to be doing well. Denies any new complaints. Both his brother and his nephew were both at the bedside at the time of the encounter. OBJECTIVE: Vital signs: Blood pressure is 153/69, pulse of 72, respiration is 14, temperature 97.9 degrees. General: Mr. Vides is a 73-year-old gentleman. He is in bed, no distress. HEENT: Mucosa is pink and moist. Anicteric. Acyanotic. Neck: Supple. Chest: Good air entry bilaterally. A few crackles posteriorly. Cardiovascular: Regular rate and rhythm. No murmurs. No rubs. No gallops. GI: Abdomen is soft, nontender. Bowel sounds present. Extremities: No pedal edema. ADAPTED PHYSICAL EDUCATION AIDE: Patient is more awake, conversational. Still has left-sided hemiparesis. LABORATORY DATA: None for this morning. So far blood cultures have been 48 hours negative. ASSESSMENT: 1. Breakthrough seizures, presumably due to medication noncompliance. The patient was initially started on IV Keppra. He has been switched to his lamotrigine. 2. 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 3. Aspiration pneumonitis. The patient is improved. He is day 6 on Zosyn. We will switch him to p.o. Augmentin. 4. Delirium with baseline dementia, improved. 5. Generalized weakness and deconditioning. Physical therapy is on board. 6. Premorbid condition. Mr. Vides is for the most part bed-bound. Will move very little with a walker and with the extreme assistance from the brother. Disposition. Mr. Vides himself is not very keen on the idea of wanting to go to rehab. However, he is very weak and we think he will benefit from rehab. Unfortunately, [facility] will not accept him until he pays previous balance, as per social insurance administrator's note. I have communicated this to the brother who seems to be aware about this balance and he recommends that he would take his brother home tomorrow with home health if possible. We will consult social work for home health. cc: MD CEASAR Schrader
[2019-09-11] MEDS: PRILOSEC PO SCH (06:23)
[2019-09-11] MEDS: NORVASC PO SCH ×2 (07:48→08:02)
[2019-09-11] MEDS: LAMICTAL PO SCH ×2 (07:48→08:02)
[2019-09-11] MEDS: COREG PO SCH ×3 (07:49→08:02)
[2019-09-11] MEDS: SYMMETREL PO SCH ×2 (07:55→08:02)
[2019-09-11] MEDS: AUGMENTIN PO SCH ×2 (07:55→08:01)
[2019-09-11] MEDS: VITAMIN B-1 PO SCH ×2 (07:55→08:02)
[2019-09-11 08:00] VITALS: BP 152/99
[2019-09-11] MEDS: LOVENOX SUBQ SCH (08:02)
--- NOTE | 2019-09-11 23:04 | DISCHARGE SUMMARY ---
ADMISSION DATE: 09/01/2019 DISCHARGE DATE: 09/11/2019 DISPOSITION: Home with home health. FOLLOW-UP: Mr. Gucci Harrison. Dr. Roper. CONSULTATION DURING THIS ADMISSION: Neurology was consulted. Patient was seen by Dr. Roper. INVASIVE PROCEDURES DONE DURING THIS ADMISSION: None. IMAGING STUDIES OF SIGNIFICANCE: 1. CT scan of the head only showed chronic ischemic changes and postsurgical encephalomalacia. 2. An MRI of the brain showed significant chronic changes. No acute process. 3. Multiple x-rays done on the 2nd of this month showed reduced lung volumes, stable left basilar atelectasis. ADMISSION DIAGNOSES: 1. Altered mental status. 2. Seizures. 3. Hypertension. 4. GERD. DISCHARGE DIAGNOSIS: 1. Breakthrough seizures, presumably due to medication noncompliance. 2. 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 3. Aspiration pneumonitis. 4. Delirium with baseline dementia. 5. Generalized weakness and deconditioning. 6. Hypertension. DISCHARGE MEDICATIONS: 1. Amlodipine 10 mg p.o. daily. 2. Carvedilol 25 b.i.d. 3. Lamotrigine 100 mg b.i.d. 4. Lisinopril 40 mg p.o. daily. 5. Amantadine 100 mg b.i.d. 6. Amoxicillin/clavulanic acid 875 b.i.d. 7. Lactobacillus 1 tab daily. 8. Metronidazole 250 p.o. 3 times per day. 9. Thiamine 100 mg p.o. daily. 10. Ergocalciferol 76195 units daily. PRESENTING COMPLAINT: Seizures. HISTORY OF PRESENT COMPLAINT: Mr. Vides is a 73-year-old elderly male who was brought to the emergency room because of seizures. It appears that Mr. Vides had some altered mental status at home, had some seizure episode and brought into the emergency room. At the time he presented, he was still agitated and was admitted for further medical care. HOSPITAL COURSE: Mr. Vides was admitted to the medical floor. Because he was remarkably altered, he could not tolerate his p.o. medications, so he was switched to IV Keppra and Neurology was consulted. Patient was seen by Dr. Roper. Mr. Vides's mentation progressively got better to the point where he was able to sustain rational conversation. His imaging studies and chest physical findings seems to suggest aspiration pneumonitis. He was started on antibiotics and he was evaluated by speech therapist. Up to today, speech therapy evaluation seems to suggest the patient has exhibited improvement and the patient tolerated regular p.o. trials and thin liquids. I have also been in daily conversation with the brother who is his healthcare provider and have updated him on daily basis about Mr. Vides's clinical picture. At some point, both Mr. Vides and the brother were willing to go to rehab. Mr. Vides himself was not very keen in wanting to go to rehab, but the brother was fine with him going. Unfortunately per the social work documentation, Mr. Vides owns [facility] and they would not accept him until he pays. The brother, who had knowledge about this, said he does not think that it was reasonable for him to go and pay and that he was willing to take his brother home and that even his brother does not want to go to rehab. This morning I spoke extensively with Mr. Vides and he said he wants to go home. He does not want to go and do any rehab. Mr. Vides's premorbid condition, however, has been for the most part bed-bound and wheelchair for mobility very rare. He will use a front wheel walker. The patient was also evaluated by physical therapy. They recommended home health physical therapy/inpatient rehab. As I said Mr. Vides wants to go home. He is medically stable. He has not had any more seizures during the hospital course and his brother has stated very clearly that he will be taking care of him. I think he will be stable. I think he will be okay going back home with home health with physical therapy, occupational and speech. Time spent for discharge is 38 minutes. cc: Danial Doss MD
== END 2019-09-11 15:16 | disposition home health service (06) | DRG 56 ==
LOC: ED 21:22 → SUATTDRO 09-02 00:56 → 2N 09-02 00:56 → 3N 09-06 11:16
PROVIDERS: ATTEND Internal Medicine